=== PATIENT | female | born 1965 | race Two or more races ===

== ENCOUNTER 2016-10-03 08:52 | Emergency (ER) | payer MEDICAID ==
[~2016-10-03] VITALS: Ht 157.5 cm; Wt 74.8 kg
[2016-10-03] MEDS ORDERED: KETOROLAC TROMETH 60MG/2ML VIAL IM ONE (11:15)
[2016-10-03 11:18] VITALS: BP 145/84
== END 2016-10-03 12:03 | disposition home or self-care (01) ==
LOC: ER 08:53
DX: M72.2 Plantar fascial fibromatosis (principal); E11.9 Type 2 diabetes mellitus without complications; I10 Essential (primary) hypertension; Z98.890 Other specified postprocedural states; Z90.710 Acquired absence of both cervix and uterus; Z90.49 Acquired absence of other specified parts of digestive tract
CPT/HCPCS: 73630; 82962; 96372; 99284; J1885

== ENCOUNTER 2017-03-26 08:20 | Emergency (ER) | payer MEDICAID ==
[~2017-03-26] VITALS: Ht 157.5 cm; Wt 77.1 kg
[2017-03-26 09:27] LABS: Urine RBC None Seen /hpf (0 - 4)
[2017-03-26 09:34] LABS: Urine Bilirubin Negative (Negative); Urine Blood Negative /uL (Negative); Urine Glucose Normal (Normal); Urine Ketone Negative (Negative); Urine Squamous Epithelial Cell FEW /hpf (<5); Urine Urobilinogen Normal (Negative)
[2017-03-26 09:35] LABS: Urine Color Straw (Yellow); Urine Nitrite POSITIVE (Negative)
[2017-03-26 09:51] LABS: Basophils # (auto) 0 uL; Basophils % (auto) 0.5 % (0.0-2.0); CONDITION Y; Eosinophils # (auto) 0.1 uL; Eosinophils % (auto) 1.3 % (0.0-7.0); Hematocrit 39.7 % (36.0-46.0); Hemoglobin 13.9 g/dL (12.2-16.2); Lymphocytes # (auto) 2.1 uL; Lymphocytes % (auto) 30.9 % (10.0-50.0); Mean Corpuscular Hemoglobin 31.5 pg (28.0-32.0); Mean Corpuscular Hgb Conc. 35.1 g/dL (32.0-36.0); Mean Platelet Volume 8.8 fL (7.4-10.4); Monocytes # (auto) 0.6 uL; Neutrophils # (auto) 4.1 uL; Neutrophils % (auto) 58.3 % (37.0-80.0); Platelet Count (auto) 238 10^3/uL (140-450); Red Cell Distribution Width 13.1 % (11.6-16.0)
[2017-03-26 10:20] LABS: Albumin 3.8 g/dL (3.4-5.0); BUN/Creatinine Ratio 18.6; Bilirubin, Total 0.3 mg/dL (0.2-1.0); Calcium 8.6 mg/dL (8.5-10.1); Potassium 4.3 mmol/L (3.5-5.1); Total Protein 7.4 g/dL (6.4-8.2)
[2017-03-26] MEDS ORDERED: CIPROFLOXACIN HCL 500 MG TAB PO ONE (11:15)
[2017-03-26 11:33] VITALS: BP 143/82
== END 2017-03-26 12:07 | disposition home or self-care (01) ==
LOC: ER 08:20
DX: N39.0 Urinary tract infection, site not specified (principal); E11.9 Type 2 diabetes mellitus without complications; I10 Essential (primary) hypertension; Z90.49 Acquired absence of other specified parts of digestive tract; Z90.710 Acquired absence of both cervix and uterus; R31.9 Hematuria, unspecified
CPT/HCPCS: 36415; 80053; 81001; 84484; 85025; 93005

== ENCOUNTER 2017-09-20 05:26 | Emergency (ER) | payer MEDICAID ==
[~2017-09-20] VITALS: Ht 157.5 cm; Wt 76.2 kg
[2017-09-20 06:12] LABS: Urine Bacteria FEW /hpf (None Seen); Urine Blood Negative /uL (Negative); Urine Specific Gravity 1.003 (1.001-1.035); Urine WBC <1 /hpf (0 - 5)
[2017-09-20 07:34] LABS: Basophils # (auto) 0.1 uL; Eosinophils # (auto) 0.1 uL; Eosinophils % (auto) 2.2 % (0.0-7.0); Hematocrit 41.8 % (36.0-46.0); Hemoglobin 14.2 g/dL (12.2-16.2); Lymphocytes # (auto) 2.1 uL; Lymphocytes % (auto) 31.9 % (10.0-50.0); Mean Corpuscular Hemoglobin 30.9 pg (28.0-32.0); Mean Corpuscular Hgb Conc. 33.9 g/dL (32.0-36.0); Mean Corpuscular Volume 91.1 fL (80.0-100.0); Monocytes # (auto) 0.8 uL; Monocytes % (auto) 11.8 % (0.0-12.0); Neutrophils # (auto) 3.6 uL; Neutrophils % (auto) 53.1 % (37.0-80.0); Nucleated Red Blood Cells % 0.2 %; Platelet Count (auto) 217 10^3/uL (140-450); Red Blood Cells 4.59 10^6/uL (4.0-5.20); Red Cell Distribution Width 13.1 % (11.8-14.3); White Blood Cell 6.7 10^3/uL (4.4-10.8)
[2017-09-20 07:46] LABS: Albumin 3.7 g/dL (3.4-5.0); BUN/Creatinine Ratio 16.4; Bilirubin, Total 0.6 mg/dL (0.2-1.0); Calcium 8.6 mg/dL (8.5-10.1); Potassium 4.2 mmol/L (3.5-5.1); Total Protein 7.9 g/dL (6.4-8.2)
[2017-09-20 12:32] VITALS: BP 144/86
== END 2017-09-20 13:34 | disposition home or self-care (01) ==
LOC: ER 05:32
DX: K59.01 Slow transit constipation (principal); E11.65 Type 2 diabetes mellitus with hyperglycemia; M79.1 Myalgia; I10 Essential (primary) hypertension; Z76.0 Encounter for issue of repeat prescription; Z90.49 Acquired absence of other specified parts of digestive tract; Z90.710 Acquired absence of both cervix and uterus
CPT/HCPCS: 36415; 74176; 80053; 81001; 81025; 82962; 85025; 99285; J7030

== ENCOUNTER 2017-12-26 06:56 | Emergency (ER) | payer MEDICAID ==
[~2017-12-26] VITALS: Ht 154.9 cm; Wt 77.1 kg
[2017-12-26 08:38] LABS: Basophils # (auto) 0.1 uL; Basophils % (auto) 1.3 % (0.0-2.0); Eosinophils # (auto) 0.2 uL; Eosinophils % (auto) 2.4 % (0.0-7.0); Hemoglobin 13.9 g/dL (12.2-16.2); Lymphocytes # (auto) 1.8 uL; Lymphocytes % (auto) 22.7 % (10.0-50.0); Mean Corpuscular Hemoglobin 30.4 pg (28.0-32.0); Mean Corpuscular Hgb Conc. 33.2 g/dL (32.0-36.0); Mean Corpuscular Volume 91.4 fL (80.0-100.0); Monocytes # (auto) 0.7 uL; Monocytes % (auto) 8.6 % (0.0-12.0); Neutrophils # (auto) 5.1 uL; Nucleated Red Blood Cells % 0.1 %; Platelet Count (auto) 200 10^3/uL (140-450); Red Blood Cells 4.59 10^6/uL (4.0-5.20); Red Cell Distribution Width 13.3 % (11.8-14.3); White Blood Cell 7.9 10^3/uL (4.4-10.8)
[2017-12-26 08:45] LABS: Urine Bacteria MANY /hpf (None Seen); Urine Blood Negative /uL (Negative); Urine Mucus FEW (None Seen); Urine Specific Gravity 1.011 (1.001-1.035); Urine WBC 15 /hpf (0 - 5)
[2017-12-26 08:53] LABS: Albumin 3.6 g/dL (3.4-5.0); BUN/Creatinine Ratio 19.7; Calcium 8.8 mg/dL (8.5-10.1); Potassium 3.9 mmol/L (3.5-5.1)
[2017-12-26 08:56] LABS: Bilirubin, Total 0.5 mg/dL (0.2-1.0); Total Protein 7.3 g/dL (6.4-8.2)
[2017-12-26] MEDS ORDERED: NITROFURANTOIN (MONO) 100 mg CAP PO ONE (11:15)
[2017-12-26 11:20] VITALS: BP 100/56
== END 2017-12-26 11:37 | disposition home or self-care (01) ==
LOC: ER 07:10
DX: M79.605 Pain in left leg (principal); M79.604 Pain in right leg; N39.0 Urinary tract infection, site not specified; K75.9 Inflammatory liver disease, unspecified; E11.9 Type 2 diabetes mellitus without complications; I10 Essential (primary) hypertension; R06.02 Shortness of breath; Z90.49 Acquired absence of other specified parts of digestive tract; Z90.710 Acquired absence of both cervix and uterus
CPT/HCPCS: 36415; 80053; 81001; 83880; 85025; 93971

== ENCOUNTER 2018-05-13 18:33 | Emergency (ER) | payer MEDICAID ==
[~2018-05-13] VITALS: Ht 157.5 cm; Wt 78.5 kg
[2018-05-13 21:18] VITALS: BP 141/91
[2018-05-13] MEDS ORDERED: HYDROcodone-ACET 10/325MG TAB PO ONE (22:00)
[2018-05-13] MEDS ORDERED: BENZOCAINE (DENTAL) 20 % SPRAY 60ML MT ONE (22:00)
[2018-05-13] MEDS ORDERED: cefTRIAXone SOD 1,000 MG VL IM ONE (22:00)
== END 2018-05-13 22:38 | disposition home or self-care (01) ==
LOC: ER 18:33
DX: L03.011 Cellulitis of right finger (principal); E11.9 Type 2 diabetes mellitus without complications; I10 Essential (primary) hypertension; Z90.49 Acquired absence of other specified parts of digestive tract; Z87.440 Personal history of urinary (tract) infections
CPT/HCPCS: 10060; 73140; 82962; 96372; 99284; J0696

== ENCOUNTER 2018-05-14 21:18 | Emergency (ER) | payer MEDICAID ==
[~2018-05-14] VITALS: Ht 157.5 cm; Wt 77.1 kg
[2018-05-14 21:59] VITALS: BP 151/85
[2018-05-14] MEDS ORDERED: cefTRIAXone SOD 1,000 MG VL IM ONE (23:30)
[2018-05-14] MEDS ORDERED: LIDOCAINE 1% (LOCAL ANESTH.) PF 5ml SDV ONE (23:32)
[2018-05-15] MEDS ORDERED: cefTRIAXone SOD 1,000 MG VL IM ONE (00:15)
== END 2018-05-15 00:27 | disposition home or self-care (01) ==
LOC: ER 21:18
DX: L02.511 Cutaneous abscess of right hand (principal); E11.9 Type 2 diabetes mellitus without complications; I10 Essential (primary) hypertension; Z90.710 Acquired absence of both cervix and uterus; Z90.49 Acquired absence of other specified parts of digestive tract
CPT/HCPCS: 96372; 99283; J0696

== ENCOUNTER 2018-07-25 08:59 | Emergency (ER) | payer MEDICAID ==
[~2018-07-25] VITALS: Ht 157.5 cm; Wt 78.5 kg
[2018-07-25 09:05] VITALS: BP 152/86
[2018-07-25] MEDS ORDERED: cefTRIAXone W LIDOCAINE 1 GM IM IM ONE (09:45)
[2018-07-25] MEDS ORDERED: cefTRIAXone SOD 1,000 MG VL IM ONE (10:00)
== END 2018-07-25 10:07 | disposition home or self-care (01) ==
LOC: ER 09:02
DX: L03.116 Cellulitis of left lower limb (principal); E11.9 Type 2 diabetes mellitus without complications; I10 Essential (primary) hypertension; Z90.710 Acquired absence of both cervix and uterus; Z90.49 Acquired absence of other specified parts of digestive tract
CPT/HCPCS: 82962; 96372; 99283; J0696

== ENCOUNTER 2019-01-11 19:06 | Emergency (ER) | payer MEDICAID ==
[~2019-01-11] VITALS: Ht 157.5 cm; Wt 79.4 kg
[2019-01-11 21:04] LABS: Basophils # (auto) 0 uL; Basophils % (auto) 0.6 % (0.0-2.0); Eosinophils # (auto) 0.1 uL; Eosinophils % (auto) 1.5 % (0.0-7.0); Hematocrit 41.2 % (36.0-46.0); Hemoglobin 13.9 g/dL (12.2-16.2); Lymphocytes # (auto) 2.5 uL; Lymphocytes % (auto) 33.3 % (10.0-50.0); Mean Corpuscular Hemoglobin 30.5 pg (28.0-32.0); Mean Corpuscular Hgb Conc. 33.8 g/dL (32.0-36.0); Mean Corpuscular Volume 90.3 fL (80.0-100.0); Monocytes # (auto) 0.8 uL; Monocytes % (auto) 10.1 % (0.0-12.0); Neutrophils # (auto) 4.1 uL; Neutrophils % (auto) 54.5 % (37.0-80.0); Nucleated Red Blood Cells % 0.1 %; Platelet Count (auto) 224 10^3/uL (140-450); Red Blood Cells 4.56 10^6/uL (4.0-5.20); Red Cell Distribution Width 13.4 % (11.8-14.3); White Blood Cell 7.4 10^3/uL (4.4-10.8)
[2019-01-11 21:20] LABS: Albumin 3.8 g/dL (3.4-5.0); Calcium 8.9 mg/dL (8.5-10.1); Potassium 4.5 mmol/L (3.5-5.1)
[2019-01-11 21:23] LABS: BUN/Creatinine Ratio 13.6; Bilirubin, Total 0.3 mg/dL (0.2-1.0); Total Protein 7.8 g/dL (6.4-8.2)
[2019-01-12] MEDS ORDERED: HYDROcodone-ACET 10/325MG TAB PO ONE (01:15)
[2019-01-12] MEDS ORDERED: cefTRIAXone 1GM/50ML D5W 50 ML IV ONE (01:15)
[2019-01-12] MEDS ORDERED: VANCOMYCIN 1GM/250ML 250 ML IV ONE (01:15)
[2019-01-12 02:56] VITALS: BP 142/86
== END 2019-01-12 04:08 | disposition home or self-care (01) ==
LOC: ER 19:11
DX: S91.332A Puncture wound without foreign body, left foot, initial encounter (principal); L03.116 Cellulitis of left lower limb; E11.65 Type 2 diabetes mellitus with hyperglycemia; I10 Essential (primary) hypertension; Z90.49 Acquired absence of other specified parts of digestive tract; Z90.710 Acquired absence of both cervix and uterus; W22.8XXA Striking against or struck by other objects, initial encounter; Y93.89 Activity, other specified; Y99.8 Other external cause status; Y92.89 Other specified places as the place of occurrence of the external cause
CPT/HCPCS: 36415; 73630; 73700; 80053; 85025; 96365; 96366; 96368; 99284; J0696; J3370

== ENCOUNTER 2019-06-27 00:36 | Emergency (ER) | payer MEDICAID ==
[~2019-06-27] VITALS: Ht 157.5 cm; Wt 74.8 kg
[2019-06-27] MEDS ORDERED: cefTRIAXone SOD 1,000 MG VL IM ONE (04:00)
[2019-06-27] MEDS ORDERED: KETOROLAC TROMETH 60MG/2ML VIAL IM ONE (04:00)
[2019-06-27 04:34] VITALS: BP 107/76
[2019-06-27 05:12] LABS: Basophils # (auto) 0.1 uL; Basophils % (auto) 0.5 % (0.0-2.0); Eosinophils # (auto) 0.1 uL; Eosinophils % (auto) 0.7 % (0.0-7.0); Hemoglobin 14.3 g/dL (12.2-16.2); Lymphocytes # (auto) 1.6 uL; Lymphocytes % (auto) 15.4 % (10.0-50.0); Mean Corpuscular Hemoglobin 30.5 pg (28.0-32.0); Mean Corpuscular Hgb Conc. 34.1 g/dL (32.0-36.0); Mean Corpuscular Volume 89.4 fL (80.0-100.0); Monocytes # (auto) 1.1 uL; Monocytes % (auto) 10.9 % (0.0-12.0); Neutrophils # (auto) 7.5 uL; Neutrophils % (auto) 72.5 % (37.0-80.0); Platelet Count (auto) 217 10^3/uL (140-450); Red Blood Cells 4.69 10^6/uL (4.0-5.20); Red Cell Distribution Width 13.6 % (11.8-14.3); White Blood Cell 10.3 10^3/uL (4.4-10.8)
[2019-06-27 05:31] LABS: Albumin 3.6 g/dL (3.4-5.0); Anion Gap 5 (5-15); Blood Urea Nitrogen 15 mg/dL (7-18); Calcium 8.6 mg/dL (8.5-10.1); Carbon Dioxide 29 mmol/L (21-32); Chloride 104 mmol/L (98-107); Glucose 146 mg/dL (74-106); Sodium 138 mmol/L (136-145)
[2019-06-27 05:37] LABS: Alanine Aminotransferase 32 U/L (13-56); Alkaline Phosphatase 122 U/L (45-117); Aspartate Aminotransferase 18 U/L (15-37); BUN/Creatinine Ratio 16.7; Bilirubin, Total 0.6 mg/dL (0.2-1.0); GFR African American 85 mL/min; GFR Non-African American 70 mL/min; Total Protein 7.7 g/dL (6.4-8.2)
== END 2019-06-27 05:07 | disposition home or self-care (01) ==
LOC: ER 00:38
DX: R42 Dizziness and giddiness (principal); H70.002 Acute mastoiditis without complications, left ear; H92.02 Otalgia, left ear; E11.9 Type 2 diabetes mellitus without complications; I10 Essential (primary) hypertension; Z90.49 Acquired absence of other specified parts of digestive tract
CPT/HCPCS: 36415; 70450; 71045; 80053; 82962; 84484; 85025; 93005; 96372; 99284; J0696; J1885

== ENCOUNTER 2019-10-09 04:16 | Emergency (ER) | payer MEDICAID ==
[~2019-10-09] VITALS: Ht 152.4 cm; Wt 76.4 kg
[2019-10-09 04:28] VITALS: BP 140/78
== END 2019-10-09 06:48 | disposition left against medical advice (07) ==
LOC: ER 04:16
DX: R21 Rash and other nonspecific skin eruption (principal); Z53.21 Procedure and treatment not carried out due to patient leaving prior to being seen by health care provider

== ENCOUNTER 2019-11-11 12:48 | Emergency (ER) | payer MEDICAID ==
[~2019-11-11] VITALS: Ht 157.5 cm; Wt 68.0 kg
[2019-11-11 16:11] VITALS: BP 164/99
[2019-11-11] MEDS ORDERED: ACETAMINOPHEN 500 MG TAB PO ONE (16:30)
== END 2019-11-11 17:38 | disposition home or self-care (01) ==
LOC: EDBD 12:48 → ER 12:58
DX: S16.1XXA Strain of muscle, fascia and tendon at neck level, initial encounter (principal); S39.012A Strain of muscle, fascia and tendon of lower back, initial encounter; E11.9 Type 2 diabetes mellitus without complications; I10 Essential (primary) hypertension; V43.52XA Car driver injured in collision with other type car in traffic accident, initial encounter; Y93.I9 Activity, other involving external motion; Y92.410 Unspecified street and highway as the place of occurrence of the external cause; Y99.8 Other external cause status
CPT/HCPCS: 72040

== ENCOUNTER 2019-11-27 19:36 | Emergency (ER) | payer MEDICAID, OTHER ==
[~2019-11-27] VITALS: Ht 152.4 cm; Wt 76.2 kg
[2019-11-27] MEDS ORDERED: KETOROLAC TROMETH 60MG/2ML VIAL IM ONE (21:45)
[2019-11-27] MEDS ORDERED: methylPREDNISolone SOD SUCC 125 MG/2 ML VL IM ONE (21:45)
[2019-11-27 23:06] VITALS: BP 148/76
== END 2019-11-27 23:25 | disposition home or self-care (01) ==
LOC: ER 19:38
DX: S39.012D Strain of muscle, fascia and tendon of lower back, subsequent encounter (principal); S43.402D Unspecified sprain of left shoulder joint, subsequent encounter; E11.9 Type 2 diabetes mellitus without complications; I10 Essential (primary) hypertension; Z90.49 Acquired absence of other specified parts of digestive tract; Z90.710 Acquired absence of both cervix and uterus; X58.XXXD Exposure to other specified factors, subsequent encounter
CPT/HCPCS: 72100; 76775; 96372; 99284; J1885; 93005

== ENCOUNTER 2020-01-18 23:22 | Inpatient (IN) | payer MEDICAID ==
[~2020-01-18] VITALS: Ht 152.4 cm; Wt 75.9 kg
[2020-01-19] LABS: Basophils # (auto) 0.1 10 ^3/uL (0-0.2); Basophils % (auto) 0.3 % (0.0-2.0); Eosinophils # (auto) 0 10 ^3/uL (0-0.8); Eosinophils % (auto) 0.1 % (0.0-7.0); Hematocrit 38.3 % (36.0-46.0); Hemoglobin 12.6 g/dL (12.2-16.2); Lymphocytes # (auto) 0.9 10 ^3/uL (0.4-5.4); Lymphocytes % (auto) 5.4 % (10.0-50.0); Mean Corpuscular Hemoglobin 28.7 pg (28.0-32.0); Mean Corpuscular Volume 86.8 fL (80.0-100.0); Monocytes # (auto) 0.9 10 ^3/uL (0-1.3); Monocytes % (auto) 5.7 % (0.0-12.0); Neutrophils # (auto) 14.8 10 ^3/uL (1.6-8.6); Neutrophils % (auto) 88.5 % (37.0-80.0); Nucleated Red Blood Cells % 0.1 %; Platelet Count (auto) 268 10^3/uL (140-450); Red Blood Cells 4.41 10^6/uL (4.0-5.20); Red Cell Distribution Width 14.2 % (11.8-14.3); White Blood Cell 16.7 10^3/uL (4.4-10.8)
[2020-01-19] MEDS ORDERED: MORPHINE SULFATE 4 MG/ML SYR/VIAL IV ONE (00:15)
[2020-01-19] MEDS ORDERED: ONDANSETRON HCL 4 MG/2 ML VIAL IV ONE (00:15)
[2020-01-19 00:17] LABS: Albumin 3.4 g/dL (3.4-5.0); Calcium 8.5 mg/dL (8.5-10.1); Potassium 4.2 mmol/L (3.5-5.1)
[2020-01-19 00:20] LABS: Bilirubin, Total 0.4 mg/dL (0.2-1.0); Total Protein 8.1 g/dL (6.4-8.2)
[2020-01-19 00:42] LABS: Urine Bacteria MANY /hpf (None Seen); Urine Blood 3+ /uL (Negative); Urine Specific Gravity 1.017 (1.001-1.035); Urine WBC 177 /hpf (0 - 5)
[2020-01-19] MEDS ORDERED: cefTRIAXone 1GM/50ML D5W 50 ML IV ONE (01:00)
[2020-01-19] MEDS ORDERED: TEMAZEPAM 15 MG CAP PO PRN (02:30)
[2020-01-19] MEDS ORDERED: DEXTROSE (50%) 50ML SYRG IV PRN (02:30)
[2020-01-19] MEDS ORDERED: cloNIDine HCL 0.1 MG TAB PO PRN (02:30)
[2020-01-19] MEDS ORDERED: HYDROcodone-ACET 5/325MG TAB PO PRN (02:30)
[2020-01-19] MEDS ORDERED: ONDANSETRON HCL 4 MG/2 ML VIAL IV PRN (02:30)
[2020-01-19] MEDS ORDERED: SODIUM CHLORIDE 0.9% 1,000 ML IV SCH (02:30)
--- NOTE | 2020-01-19 03:47 | NUR ---
MS admit from [facility],ARIADNA TROTTER admitted to MS after SBAR received. Patient oriented to Denise Zayas primary RN, unit, room, bed, and unit policies regarding patient care and visiting hours. Patient weighed by bed scale and encouraged to call if they need something. All questions and concerns addressed, patient verbalized understanding. Instructed patient on POC, fall precautions and to call for assistance as needed. Patient verbalized understanding. Fall precautions in place with call light within reach.
[2020-01-19] MEDS ORDERED: INSLANTI SC (05:10)
[2020-01-19] MEDS ORDERED: METF-370 PO (05:10)
[2020-01-19] MEDS ORDERED: INSU100I2 SC (05:10)
[2020-01-19] MEDS: ACCU-CHEK COMFORT CURVE STRIP VI SCH ×3 (06:13→17:51)
[2020-01-19] MEDS: InsuLIN REG 1unit/0.01ml Soln (100units/ml) SC SCH ×3 (06:18→17:54)
--- NOTE | 2020-01-19 06:25 | NUR ---
Closing note Patient resting in bed with even and unlabored respirations, no distress noted. Patient reports she is comfortable. Fall precautions in place with call light within reach.
--- NOTE | 2020-01-19 07:27 | NUR ---
Care endorsed to YULI Puga.
--- NOTE | 2020-01-19 07:48 | NUR ---
Opening Shift Note Assumed care of patient, awake and alert sitting up in bed. No S/S of distress/SOB or pain. Instructed on POC and to call for assist PRN, will continue to monitor for changes Q1hr and PRN.
[2020-01-19 09:00] VITALS: BP 117/69
[2020-01-19] MEDS: amLODIPine BESYLATE 5 MG TAB PO SCH (10:00)
[2020-01-19] MEDS: FAMOTIDINE 20 MG TAB PO SCH ×2 (12:10→21:36)
[2020-01-19 13:00] VITALS: BP 146/76
[2020-01-19] MEDS: SODIUM CHLORIDE 0.9% 1,000 ML IV SCH (14:37)
--- NOTE | 2020-01-19 14:40 | NUR ---
Hernandez Catheter Patient refusing Hernandez catheter insertion at this time. Will notify Dr. Paniagua
[2020-01-19 17:13] VITALS: BP 152/84
--- NOTE | 2020-01-19 17:35 | NUR ---
Salguero catheter insertion Patient agreed to Salguero catheter insertion after speaking with Dr. Paniagua. Order obtained from Dr. Rowena Paniagua for salguero catheter insertion. He provided education to patient regarding Salguero catheter and reason for insertion. All questions answered. Salguero catheter 14 guage Sinhala inserted with clean sterile technique.
[2020-01-19] MEDS ORDERED: ESCI10TA53 PO (17:54)
--- NOTE | 2020-01-19 19:45 | NUR ---
Opening Shift Note Assumed care of patient, awake and alert. No S/S of distress/SOB. The patient reports having lower back pain with movement but did not request any pain medication. The patient reports feeling chills and stated that her temperature was high earlier. Rechecked the patient's temperature which was 100.7 F. Will treat with PRN Tylenol. Bed is locked in lowest position with call light within reach. Instructed on POC and to call for assist PRN, will continue to monitor for changes Q1hr and PRN.
--- NOTE | 2020-01-19 19:50 | NUR ---
ELEVATED TEMPERATURE The patient's temperature is elevated at 100.7 F. Will administer Acetaminophen and will reevaluate the patient's temperature.
[2020-01-19] MEDS: ACETAMINOPHEN 325 MG TAB PO PRN (19:54)
--- NOTE | 2020-01-19 21:00 | NUR ---
TEMPERATURE REEVALUATION The patient's temperature has improved to 99.1 F. Will continue to monitor the patient's temperature.
[2020-01-19] MEDS: ATORVASTATIN 20 MG TAB PO SCH (21:36)
[2020-01-19 22:00] VITALS: BP 137/73
[2020-01-20] MEDS: ACCU-CHEK COMFORT CURVE STRIP VI SCH ×4 (00:37→18:03)
[2020-01-20] MEDS ORDERED: cefTRIAXone 1GM/50ML D5W 50 ML IV SCH (01:00)
[2020-01-20] MEDS: ACETAMINOPHEN 325 MG TAB PO PRN ×3 (02:45→20:43)
--- NOTE | 2020-01-20 02:45 | NUR ---
ELEVATED TEMPERATURE The patient's temperature is 100.1 F and she complains of chills. Will administer Acetaminophen PRN and reevaluate.
--- NOTE | 2020-01-20 03:45 | NUR ---
TEMPERATURE REEVALUATION The patient's temperature has improved to 98.96 F. Patient is resting comfortably in bed. Will continue to monitor the patient's status.
--- NOTE | 2020-01-20 04:46 | NUR ---
POSITIVE BLOOD CULTURE Patient's blood culture is positive. Blood culture is positive for gram negative rods. Results verified by Renny Corbett. Will notify hospitalist.
[2020-01-20 05:00] VITALS: BP 125/70
--- NOTE | 2020-01-20 05:44 | NUR ---
HOSPITALIST PAGED Hospitalist Skyler has been nofitied about the patient's gram negative ermelinda blood culture results. New order received. Vancomycin per pharmacy order has been placed.
[2020-01-20 05:57] LABS: Basophils # (auto) 0 10 ^3/uL (0-0.2); Basophils % (auto) 0.3 % (0.0-2.0); Eosinophils # (auto) 0.1 10 ^3/uL (0-0.8); Eosinophils % (auto) 0.4 % (0.0-7.0); Hematocrit 36.3 % (36.0-46.0); Hemoglobin 12.4 g/dL (12.2-16.2); Lymphocytes # (auto) 1.4 10 ^3/uL (0.4-5.4); Lymphocytes % (auto) 11.9 % (10.0-50.0); Mean Corpuscular Hemoglobin 29.5 pg (28.0-32.0); Mean Corpuscular Hgb Conc. 34.2 g/dL (32.0-36.0); Mean Corpuscular Volume 86.4 fL (80.0-100.0); Monocytes # (auto) 1.3 10 ^3/uL (0-1.3); Monocytes % (auto) 11.1 % (0.0-12.0); Neutrophils # (auto) 9.2 10 ^3/uL (1.6-8.6); Neutrophils % (auto) 76.3 % (37.0-80.0); Platelet Count (auto) 231 10^3/uL (140-450); Red Cell Distribution Width 14.2 % (11.8-14.3); White Blood Cell 12.1 10^3/uL (4.4-10.8)
[2020-01-20] MEDS ORDERED: VANCOMYCIN PER PHARMACY 0 MG IV SCH (06:00)
[2020-01-20] MEDS ORDERED: VANCOMYCIN 1GM/250ML 250 ML IV SCH (06:00)
[2020-01-20] MEDS: InsuLIN REG 1unit/0.01ml Soln (100units/ml) SC SCH ×4 (06:21→18:04)
[2020-01-20 06:32] LABS: Calcium 8.1 mg/dL (8.5-10.1); Magnesium 1.9 mg/dL (1.6-2.6); Potassium 3.6 mmol/L (3.5-5.1)
[2020-01-20 06:39] LABS: Albumin 2.9 g/dL (3.4-5.0); BUN/Creatinine Ratio 15.6; Bilirubin, Total 0.5 mg/dL (0.2-1.0); Total Protein 7.2 g/dL (6.4-8.2)
[2020-01-20] MEDS: SODIUM CHLORIDE 0.9% 1,000 ML IV SCH ×2 (06:45→23:42)
--- NOTE | 2020-01-20 08:00 | NUR ---
Opening Shift Note Assumed care of patient, awake and alert. No S/S of distress/SOB or pain. Instructed on POC and to call for assist PRN, will continue to monitor for changes Q1hr and PRN.
[2020-01-20] MEDS: FAMOTIDINE 20 MG TAB PO SCH ×2 (09:30→22:29)
[2020-01-20] MEDS: amLODIPine BESYLATE 5 MG TAB PO SCH (09:30)
[2020-01-20 13:00] VITALS: BP 122/70
[2020-01-20] MEDS ORDERED: MAGNESIUM SULFATE 1GM/100ML 100 ML IV ONE (14:15)
[2020-01-20] MEDS ORDERED: PIPERACILLIN-TAZOB 3.375GM 100 ML IV ONE (14:15)
[2020-01-20 17:09] VITALS: BP 129/78
--- NOTE | 2020-01-20 18:00 | NUR ---
Temp-100.1,cooling measures administered.
[2020-01-20] MEDS: VANCOMYCIN 1GM/250ML 250 ML IV SCH (18:06)
[2020-01-20] MEDS: PIPERACILLIN-TAZOB 3.375GM 100 ML IV SCH (19:02)
--- NOTE | 2020-01-20 20:43 | NUR ---
TEMPERATURE ASSESSMENT The patient's temperature is elevated at 100.8 F. Will administer PRN Acetaminophen and reassess temperature.
[2020-01-20 22:00] VITALS: BP 144/72
[2020-01-20] MEDS ORDERED: INSULIN LANTUS (GLARGINE) 1 /0.01ml (100units/ml) SC SCH (22:00)
[2020-01-20] MEDS: ATORVASTATIN 20 MG TAB PO SCH (22:29)
--- NOTE | 2020-01-20 23:51 | NUR ---
TEMPERATURE REEVALUATION After additional cooling measures, the patient's temper improved to 98.6 F. Patient is resting comfortable in bed. Will continue to monitor the patient's temperature.
[2020-01-21] MEDS: InsuLIN REG 1unit/0.01ml Soln (100units/ml) SC SCH ×5 (00:28→23:44)
[2020-01-21 05:00] VITALS: BP 138/76
[2020-01-21 05:26] LABS: Basophils # (auto) 0.1 10 ^3/uL (0-0.2); Basophils % (auto) 0.5 % (0.0-2.0); Eosinophils # (auto) 0 10 ^3/uL (0-0.8); Eosinophils % (auto) 0.5 % (0.0-7.0); Hematocrit 37.8 % (36.0-46.0); Lymphocytes # (auto) 1.1 10 ^3/uL (0.4-5.4); Lymphocytes % (auto) 11.1 % (10.0-50.0); Mean Corpuscular Hemoglobin 29.9 pg (28.0-32.0); Mean Corpuscular Hgb Conc. 34.4 g/dL (32.0-36.0); Mean Corpuscular Volume 86.8 fL (80.0-100.0); Neutrophils % (auto) 77.9 % (37.0-80.0); Platelet Count (auto) 235 10^3/uL (140-450); Red Blood Cells 4.36 10^6/uL (4.0-5.20); White Blood Cell 10.3 10^3/uL (4.4-10.8)
[2020-01-21 05:43] LABS: BUN/Creatinine Ratio 12.7; Calcium 8.2 mg/dL (8.5-10.1); Potassium 3.5 mmol/L (3.5-5.1)
[2020-01-21] MEDS: VANCOMYCIN 1GM/250ML 250 ML IV SCH (06:03)
[2020-01-21] MEDS: ACCU-CHEK COMFORT CURVE STRIP VI SCH ×5 (06:20→23:40)
[2020-01-21] MEDS: PIPERACILLIN-TAZOB 3.375GM 100 ML IV SCH ×3 (06:21→11:12)
--- NOTE | 2020-01-21 07:30 | NUR ---
RECEIVED REPORT FROM NIGHT NURSE. PATIENT RESTING IN BED, NO DISTRESS NOTED. WILL CONTINUE TO MONITOR.
[2020-01-21 09:00] VITALS: BP 132/71
[2020-01-21] MEDS: amLODIPine BESYLATE 5 MG TAB PO SCH (09:32)
[2020-01-21] MEDS: FAMOTIDINE 20 MG TAB PO SCH ×2 (09:33→21:23)
--- NOTE | 2020-01-21 11:22 | NUR ---
IV INSERTION IV INSERTED USING ASEPTIC TECHNIQUE, 22G TO THE RIGHT HAND, IV PATENT AND FLUSHING.
--- NOTE | 2020-01-21 11:22 | NUR ---
IV REMOVAL IV TO RIGHT AC, REMOVED. CATHETER TIP INTACT, PRESSURE DRESSING APPLIED.
[2020-01-21 13:00] VITALS: BP 135/81
[2020-01-21] MEDS ORDERED: ERTAPENEM SOD INJ 1 GM in SODIUM CHL 0.9% 50 ML IV ONE (13:45)
--- NOTE | 2020-01-21 15:31 | NUR ---
MIDLINE placement Patient/Patient significant other educated on need for MIDLINE placement. All risks and benefits explained and all questions and concerns addressed prior to procedure. Noted past medical history and allergies with no contraindications. INR and Plt counts within acceptable range. 4 fr MIDLINE inserted via right basilic vein using [employer]'s [employer] US and Tip Location System. Sterile technique with maximum barrier precautions utilized. Blood return obtained from the single lumen and it flushed easily with NS using proper technique. MIDLINE secured with Stat-lock; biodisc and occlusive dressing applied. Less than 5ml EBL noted during procedure. MIDLINE 20cm internally w/ 0cm externally. *Baseline Arm Circumference 34cm at 1cm above insertion site. MIDLINE lot # [id number]. Note:
--- NOTE | 2020-01-21 15:32 | NUR ---
OK to use MIDLINE Adelaide Tran. notified now OK to use MIDLINE.
[2020-01-21] MEDS: SODIUM CHLORIDE 0.9% 1,000 ML IV SCH (16:02)
[2020-01-21 17:39] VITALS: BP_SYST 155
--- NOTE | 2020-01-21 19:30 | NUR ---
opening note pt dangling at the bedside. respirations even and nonlabored on room air. salguero in place, patent, and draining to gravity. midline at right upper arm. pt denies pain or discomfort at this time. POC discussed with pt. bed in low locked position, call light within reach.
[2020-01-21] MEDS: ATORVASTATIN 20 MG TAB PO SCH (21:23)
[2020-01-21 22:00] VITALS: BP 132/76
[2020-01-21] MEDS ORDERED: INSULIN LANTUS (GLARGINE) 1 /0.01ml (100units/ml) SC SCH (22:00)
--- NOTE | 2020-01-22 00:50 | NUR ---
pt c/o sharp pain at lower abdominal area,5/10. pt will be medicated appropriately.
[2020-01-22 05:00] VITALS: BP 116/61
[2020-01-22] MEDS: ACCU-CHEK COMFORT CURVE STRIP VI SCH ×4 (05:23→23:56)
[2020-01-22] MEDS: InsuLIN REG 1unit/0.01ml Soln (100units/ml) SC SCH ×4 (05:28→23:56)
--- NOTE | 2020-01-22 06:58 | NUR ---
closing note pt is A&Ox4. pt is up in a chair, and denies pain or discomfort at this time. respirations are even and nonlabored on room air. slaguero catheter in place, patent, and draining to gravity.
[2020-01-22 09:00] VITALS: BP 121/75
[2020-01-22] MEDS: ERTAPENEM SOD INJ 1 GM in SODIUM CHL 0.9% 50 ML IV SCH (09:21)
[2020-01-22] MEDS: SODIUM CHLORIDE 0.9% 1,000 ML IV SCH (09:23)
[2020-01-22] MEDS: FAMOTIDINE 20 MG TAB PO SCH ×2 (09:24→22:11)
[2020-01-22] MEDS: amLODIPine BESYLATE 5 MG TAB PO SCH (09:25)
[2020-01-22 13:00] VITALS: BP 152/90
--- NOTE | 2020-01-22 14:03 | NUR ---
Dr. Juarez paged regarding last BM 01/17 and patient requested laxative. Awaiting to call back.
--- NOTE | 2020-01-22 15:19 | NUR ---
Dr. Juarez paged again. Awaiting to call back.
[2020-01-22 17:00] VITALS: BP 140/81
--- NOTE | 2020-01-22 19:15 | NUR ---
Opening Shift Note Received report from Sugey ROLDAN. Assumed care of patient, awake and alert. No S/S of distress/SOB or pain. Instructed on POC and to call for assist PRN. Fall precaution measures in place, will continue to monitor for changes Q1hr and PRN.
[2020-01-22 21:58] VITALS: BP 153/85
[2020-01-22] MEDS: ATORVASTATIN 20 MG TAB PO SCH (22:11)
[2020-01-22] MEDS: INSULIN LANTUS (GLARGINE) 1 /0.01ml (100units/ml) SC SCH (22:12)
[2020-01-23] MEDS: SODIUM CHLORIDE 0.9% 1,000 ML IV SCH (01:30)
[2020-01-23 05:00] VITALS: BP 126/73
[2020-01-23] MEDS: InsuLIN REG 1unit/0.01ml Soln (100units/ml) SC SCH ×4 (06:00→23:53)
[2020-01-23] MEDS: ACCU-CHEK COMFORT CURVE STRIP VI SCH ×4 (06:00→23:53)
--- NOTE | 2020-01-23 07:30 | NUR ---
Patient stable the whole night, no complaints of pain. Endorsed care to Zara ROLDAN.
--- NOTE | 2020-01-23 07:48 | NUR ---
Opening Note Assumed pt care from NOC RN. Pt is a/ox4 with no s/s of distress or SOB. Pt is currently sitting upright in bed with no complaints at this time. US is currently at bedside for Renal US. Discussed POC with pt; pt verbalized understanding. Hernandez is present; draining michelle gravity. Safety measures maintained with call light within reach, bed in lowest position and side rails up. Will continue to monitor.
[2020-01-23 08:45] VITALS: BP 128/75
[2020-01-23] MEDS: FAMOTIDINE 20 MG TAB PO SCH ×2 (09:23→22:08)
[2020-01-23] MEDS: ERTAPENEM SOD INJ 1 GM in SODIUM CHL 0.9% 50 ML IV SCH (09:23)
[2020-01-23] MEDS: amLODIPine BESYLATE 5 MG TAB PO SCH (09:24)
--- NOTE | 2020-01-23 11:27 | NUR ---
Dr Juarez at Bedside MD to see pt. Discussed POC with pt. New orders given, read back and verified. Will continue to monitor.
--- NOTE | 2020-01-23 11:59 | NUR ---
Hernandez D/C'd Hernandez catheter d/c'ed. 450mL urine in bag upon d/c. Pt instructed to call if need assistance in voiding. Will continue to monitor.
[2020-01-23 12:30] VITALS: BP 142/82
[2020-01-23] MEDS: LACTULOSE 20Gm/30ML SOLN PO PRN (15:39)
[2020-01-23 17:20] VITALS: BP 128/78
--- NOTE | 2020-01-23 19:20 | NUR ---
Opening Shift Note Received report from Zara ROLDAN. Assumed care of patient, awake and alert, sitting on the chair by the window. No S/S of distress/SOB or pain. Instructed on POC and to call for assist PRN, will continue to monitor for changes Q1hr and PRN.
[2020-01-23] MEDS: ATORVASTATIN 20 MG TAB PO SCH (22:08)
[2020-01-23] MEDS: DOCUSATE SOD 100 MG CAP PO SCH (22:08)
[2020-01-23] MEDS: INSULIN LANTUS (GLARGINE) 1 /0.01ml (100units/ml) SC SCH (22:09)
[2020-01-23 22:13] VITALS: BP 123/72
--- NOTE | 2020-01-23 23:53 | NUR ---
Patient refused 12 midnight Accu check, educated on the risk and benefit, patient verbalized understanding.
[2020-01-24 05:55] VITALS: BP 114/75
[2020-01-24] MEDS: ACCU-CHEK COMFORT CURVE STRIP VI SCH ×2 (06:21→12:00)
[2020-01-24] MEDS: InsuLIN REG 1unit/0.01ml Soln (100units/ml) SC SCH ×2 (06:26→12:02)
[2020-01-24 06:44] LABS: Basophils # (auto) 0.1 10 ^3/uL (0-0.2); Eosinophils # (auto) 0.2 10 ^3/uL (0-0.8); Eosinophils % (auto) 2.3 % (0.0-7.0); Hematocrit 38.1 % (36.0-46.0); Lymphocytes # (auto) 2.1 10 ^3/uL (0.4-5.4); Mean Corpuscular Hemoglobin 29.3 pg (28.0-32.0); Mean Corpuscular Hgb Conc. 34.2 g/dL (32.0-36.0); Mean Corpuscular Volume 85.6 fL (80.0-100.0); Monocytes # (auto) 0.7 10 ^3/uL (0-1.3); Monocytes % (auto) 8.9 % (0.0-12.0); Neutrophils # (auto) 4.7 10 ^3/uL (1.6-8.6); Neutrophils % (auto) 60.8 % (37.0-80.0); Platelet Count (auto) 290 10^3/uL (140-450); Red Blood Cells 4.45 10^6/uL (4.0-5.20); Red Cell Distribution Width 14.1 % (11.8-14.3); White Blood Cell 7.7 10^3/uL (4.4-10.8)
[2020-01-24 07:02] LABS: BUN/Creatinine Ratio 16.1; Calcium 8.9 mg/dL (8.5-10.1); Magnesium 2.3 mg/dL (1.6-2.6); Potassium 3.9 mmol/L (3.5-5.1)
--- NOTE | 2020-01-24 07:35 | NUR ---
Opening shift note assumed care of patient from NOC YULI Payan. Patient is AOx4 and no s/s of distress noted. Bed is in lowest locked position, side rails are up x2, and call light is within reach. Updated patient on plan of care, patient verbalized understating. I will continue to monitor Q1hr and PRN.
[2020-01-24 08:45] VITALS: BP 123/80
--- NOTE | 2020-01-24 08:54 | NUR ---
I faxed home IV ATB order to [facility].
[2020-01-24] MEDS: DOCUSATE SOD 100 MG CAP PO SCH (09:56)
[2020-01-24] MEDS: FAMOTIDINE 20 MG TAB PO SCH (09:56)
[2020-01-24] MEDS: LACTULOSE 20Gm/30ML SOLN PO PRN (09:57)
[2020-01-24] MEDS: amLODIPine BESYLATE 5 MG TAB PO SCH (09:57)
[2020-01-24] MEDS: ERTAPENEM SOD INJ 1 GM in SODIUM CHL 0.9% 50 ML IV SCH (11:29)
--- NOTE | 2020-01-24 12:00 | NUR ---
Physician Rounding Dr. Juarez at bedside. Updated her on patient status. New orders received, I will follow through with orders.
[2020-01-24 12:39] VITALS: BP 132/78
--- NOTE | 2020-01-24 13:01 | NUR ---
I spoke with Cynthia at [facility] [phone] to let her know that [facility] will be following the patient. Per Cynthia they will deliver IV ATB to patient's home between 7-10pm [facility]-she will call patient to make her aware.
[2020-01-24] MEDS ORDERED: LISI-646 PO (13:04)
[2020-01-24 14:01] VITALS: BP 132/78
--- NOTE | 2020-01-24 14:55 | NUR ---
Discharged. Discharge instructions given as ordered. Encourage to follow up with PMD as instructed. All questions and concerns addressed. Patient verbalized understanding. Patient taken to vehicle via wheelchair with all personal belongings, accompanied by staff member. No distress noted at time of departure.
--- NOTE | 2020-01-24 14:56 | NUR ---
Assessment Patient is a 55-year-old female alert and oriented. Prior to admission patient lived home alone and function independently. Patient care for her own ADLs. Patient will return home to her prior living arrangements post discharge and her friend Loida will transport patient home. Advised Patient there is a Social Service consult for home health IV abx for 12 days. Informed patient if there is someone teachable at home who can assist with IV abx. Patient stated her friends daughter Gabino Ph:[phone]) will be able to assist. Informed patient [employer] will be faxing clinical information to the infusion. Informed patient she has the right to participate in all discharge planning. Patient verbalized understanding and agrees to discharge plan. Faxed clinical information to [facility]. Per Lolita with [facility] patient has been accepted and service to start within 24-48hrs upon d/c day. Obtain authorization from [facility] [id number]. Addendum: 01/24/20 at 1500 by PHOENIX ECHEVERRIA Amended: Links added.
--- NOTE | 2020-01-24 15:52 | NUR ---
Nutrition Assessment Notes Please refer to link for full assessment notes. Est Energy needs: [id number] kcals (17-20 kcal/kgBW) Est Protein needs: 61-76 gms/day (0.8-1.0 gm/kgBW) Will continue to monitor and reassess prn. Addendum: 01/24/20 at [address] Amended: Links added.
== END 2020-01-24 14:55 | disposition home health service (06) | DRG 720 ==
LOC: EDBD 23:22 → ER 23:23 → WEST WING 23:24
PROVIDERS: ADMIT Nurse Practitioner; ATTEND Internal Medicine
DX: A41.9 Sepsis, unspecified organism (principal); N10 Acute pyelonephritis; E11.9 Type 2 diabetes mellitus without complications; E66.9 Obesity, unspecified; B96.20 Unspecified Escherichia coli [E. coli] as the cause of diseases classified elsewhere; N13.6 Pyonephrosis; E78.5 Hyperlipidemia, unspecified; R31.9 Hematuria, unspecified; I10 Essential (primary) hypertension; Z16.12 Extended spectrum beta lactamase (ESBL) resistance; Z82.49 Family history of ischemic heart disease and other diseases of the circulatory system; Z83.3 Family history of diabetes mellitus; Z87.440 Personal history of urinary (tract) infections; Z90.49 Acquired absence of other specified parts of digestive tract; Z90.710 Acquired absence of both cervix and uterus; Z68.32 Body mass index [BMI] 32.0-32.9, adult
CPT/HCPCS: 36415; 74176; 76775; 80048; 80053; 80061; 81001; 82150; 82962; 83036; 83690; 83735; 84443; 85025; 87040; 87077; 87086; 87088; 87186; 96361; 96365; 96375; G0378; J0696; J1335; J1815; J2405; J2543

== ENCOUNTER → 2020-02-06 | Emergency (ER) | payer MEDICAID ==
[~2020-02-06] VITALS: Ht 152.4 cm; Wt 73.5 kg
[~2020-02-06] MED LIST: ESCI10TA53 PO; INSLANTI SC; INSU100I2 SC; LISI-646 PO; METF-370 PO
[2020-02-06 09:59] VITALS: BP 147/85
[2020-02-06 10:11] LABS: INR 0.96 (0.9-1.15); Partial Thromboplastin Time 27.1 sec (23.64-32.05)
== END | disposition home or self-care (01) ==
LOC: ER 09:05
DX: Z45.2 Encounter for adjustment and management of vascular access device (principal); E11.9 Type 2 diabetes mellitus without complications; Z87.440 Personal history of urinary (tract) infections; Z90.49 Acquired absence of other specified parts of digestive tract; Z90.710 Acquired absence of both cervix and uterus
CPT/HCPCS: 36415; 81002; 85610; 85730

== ENCOUNTER 2023-02-23 14:02 | Emergency (ER) | payer MEDICAID ==
[~2023-02-23] VITALS: Ht 152.4 cm; Wt 79.4 kg
[~2023-02-23 14:02] MED LIST changes: -ESCI10TA53 PO; +ESCI1TAB36 PO; -LISI-646 PO; +LISI20TA56 PO
[2023-02-23] MEDS ORDERED: BACDST PO (17:46)
[2023-02-23 17:53] VITALS: BP 133/78
== END 2023-02-23 18:06 | disposition home or self-care (01) ==
LOC: ER 14:02
DX: S91.331A Puncture wound without foreign body, right foot, initial encounter (principal); E11.9 Type 2 diabetes mellitus without complications; I10 Essential (primary) hypertension; Z79.899 Other long term (current) drug therapy; Z90.49 Acquired absence of other specified parts of digestive tract; Z90.710 Acquired absence of both cervix and uterus; Z98.890 Other specified postprocedural states; X58.XXXA Exposure to other specified factors, initial encounter; Y93.89 Activity, other specified; Y92.89 Other specified places as the place of occurrence of the external cause; Y99.8 Other external cause status
CPT/HCPCS: 73630

== ENCOUNTER 2023-03-22 09:19 | Emergency (ER) | payer MEDICAID ==
[~2023-03-22] VITALS: Ht 152.4 cm; Wt 78.0 kg
[~2023-03-22 09:19] MED LIST changes: +BACDST PO
[2023-03-22 14:38] LABS: Basophils # (auto) 0.1 10 ^3/uL (0-0.2); Basophils % (auto) 0.7 % (0.0-2.0); Eosinophils # (auto) 0.1 10 ^3/uL (0-0.8); Eosinophils % (auto) 1.1 % (0.0-7.0); Hematocrit 45.8 % (36.0-46.0); Hemoglobin 15.2 g/dL (12.2-16.2); Lymphocytes # (auto) 2.1 10 ^3/uL (0.4-5.4); Lymphocytes % (auto) 22.5 % (10.0-50.0); Mean Corpuscular Hemoglobin 30.4 pg (28.0-32.0); Mean Corpuscular Hgb Conc. 33.3 g/dL (32.0-36.0); Mean Corpuscular Volume 91.3 fL (80.0-100.0); Monocytes # (auto) 1.2 10 ^3/uL (0-1.3); Monocytes % (auto) 12.9 % (0.0-12.0); Neutrophils # (auto) 5.9 10 ^3/uL (1.6-8.6); Neutrophils % (auto) 62.8 % (37.0-80.0); Nucleated Red Blood Cells % 0.4 %; Red Blood Cells 5.01 10^6/uL (4.0-5.20); Red Cell Distribution Width 13.6 % (11.8-14.3); White Blood Cell 9.4 10^3/uL (4.4-10.8)
[2023-03-22 15:00] LABS: Albumin 3.9 g/dL (3.4-5.0); Calcium 9.2 mg/dL (8.5-10.1); Potassium 3.9 mmol/L (3.5-5.1)
[2023-03-22 15:04] LABS: BUN/Creatinine Ratio 16.4 (10.0-20.0); Bilirubin, Total 0.3 mg/dL (0.2-1.0); Total Protein 8.6 g/dL (6.4-8.2)
[2023-03-22] MEDS ORDERED: CEPH500C PO (16:02)
[2023-03-22 17:22] VITALS: BP 155/94
== END 2023-03-22 17:23 | disposition home or self-care (01) ==
LOC: ER 09:19
DX: S91.331A Puncture wound without foreign body, right foot, initial encounter (principal); L03.115 Cellulitis of right lower limb; E11.9 Type 2 diabetes mellitus without complications; I10 Essential (primary) hypertension; Z90.49 Acquired absence of other specified parts of digestive tract; Z88.2 Allergy status to sulfonamides; Z90.710 Acquired absence of both cervix and uterus; X58.XXXA Exposure to other specified factors, initial encounter; Y93.89 Activity, other specified; Y92.89 Other specified places as the place of occurrence of the external cause; Y99.8 Other external cause status
CPT/HCPCS: 36415; 76881; 80053; 85025

== ENCOUNTER 2023-06-27 07:35 | Emergency (ER) | payer MEDICAID ==
[~2023-06-27] VITALS: Ht 152.4 cm; Wt 78.2 kg
[~2023-06-27 07:35] MED LIST changes: +CEPH500C PO
[2023-06-27 08:18] VITALS: BP 158/89; PULSE 83; RESP 18; TEMP 97; O2SAT 95
[2023-06-27] MEDS ORDERED: IBUP-1456 PO (08:55)
== END 2023-06-27 09:14 | disposition home or self-care (01) ==
LOC: ER 07:35
DX: S63.592A Other specified sprain of left wrist, initial encounter (principal); I10 Essential (primary) hypertension; E11.9 Type 2 diabetes mellitus without complications; Z98.890 Other specified postprocedural states; Z79.1 Long term (current) use of non-steroidal anti-inflammatories (NSAID); Z79.84 Long term (current) use of oral hypoglycemic drugs; Z79.4 Long term (current) use of insulin; Z79.899 Other long term (current) drug therapy; X50.1XXA Overexertion from prolonged static or awkward postures, initial encounter; Y93.89 Activity, other specified; Y92.89 Other specified places as the place of occurrence of the external cause; Y99.8 Other external cause status
CPT/HCPCS: 73110

== ENCOUNTER 2023-08-08 09:01 | Emergency (ER) | payer MEDICAID ==
[~2023-08-08] VITALS: Ht 152.4 cm; Wt 79.8 kg
[~2023-08-08 09:01] MED LIST changes: +IBUP-1456 PO
[2023-08-08 09:29] VITALS: BP 151/83; PULSE 87; RESP 18; TEMP 98; O2SAT 97
[2023-08-08] MEDS ORDERED: IBUP-1456 PO (09:51)
== END 2023-08-08 10:04 | disposition home or self-care (01) ==
LOC: ER 09:01
DX: S63.502A Unspecified sprain of left wrist, initial encounter (principal); E11.9 Type 2 diabetes mellitus without complications; I10 Essential (primary) hypertension; Z90.49 Acquired absence of other specified parts of digestive tract; Z90.710 Acquired absence of both cervix and uterus; X50.1XXA Overexertion from prolonged static or awkward postures, initial encounter; Y93.89 Activity, other specified; Y92.89 Other specified places as the place of occurrence of the external cause; Y99.8 Other external cause status
CPT/HCPCS: 73110

== ENCOUNTER 2023-11-15 14:17 | Inpatient (IN) | payer MEDICAID ==
[~2023-11-15] VITALS: Ht 160 cm; Wt 83.5 kg
[2023-11-15 15:18] LABS: Basophils # (auto) 0.1 10 ^3/uL (0-0.2); Basophils % (auto) 0.4 % (0.0-2.0); Eosinophils # (auto) 0.1 10 ^3/uL (0-0.8); Eosinophils % (auto) 0.4 % (0.0-7.0); Hematocrit 41.8 % (36.0-46.0); Hemoglobin 14.2 g/dL (12.2-16.2); Lymphocytes % (auto) 13.5 % (10.0-50.0); Mean Corpuscular Hemoglobin 30.4 pg (28.0-32.0); Mean Corpuscular Hgb Conc. 33.9 g/dL (32.0-36.0); Mean Corpuscular Volume 89.8 fL (80.0-100.0); Monocytes # (auto) 0.9 10 ^3/uL (0-1.3); Monocytes % (auto) 6.2 % (0.0-12.0); Neutrophils # (auto) 11.7 10 ^3/uL (1.6-8.6); Neutrophils % (auto) 79.5 % (37.0-80.0); Red Blood Cells 4.66 10^6/uL (4.0-5.20); Red Cell Distribution Width 13.1 % (11.8-14.3); White Blood Cell 14.7 10^3/uL (4.4-10.8)
[2023-11-15 15:30] LABS: Urine Bacteria FEW /hpf (None Seen); Urine Blood Negative /uL (Negative); Urine Clarity Clear (Clear); Urine Protein, UAD Negative (Negative); Urine Specific Gravity 1.024 (1.001-1.035); Urine Urobilinogen Normal (Negative); Urine WBC 37 /hpf (0 - 5)
[2023-11-15 15:36] LABS: Alanine Aminotransferase 38 U/L (7-40); Albumin 4.5 g/dL (3.2-4.8); Alkaline Phosphatase 131 U/L (46-116); Anion Gap 9 (5-15); Aspartate Aminotransferase 24 U/L (13-40); BUN/Creatinine Ratio 18.5 (10.0-20.0); Blood Urea Nitrogen 17 mg/dL (9-23); Calcium 9.3 mg/dL (8.5-10.1); Carbon Dioxide 28 mmol/L (20-30); Chloride 96 mmol/L (98-107); Potassium 4.2 mmol/L (3.5-5.1); Sodium 133 mmol/L (136-145)
[2023-11-15 15:37] LABS: Bilirubin, Total 0.4 mg/dL (0.2-1.0); Total Protein 7.4 g/dL (5.7-8.2)
[2023-11-15 15:47] LABS: Urine Color Yellow (Yellow)
[2023-11-15 15:51] LABS: Glucose 452 mg/dL (74-106)
[2023-11-15] MEDS ORDERED: HYDROmorphone HCL 2 MG/ML VL/or syr IV PRN (16:00)
[2023-11-15] MEDS ORDERED: ACETAMINOPHEN 325 MG TAB PO PRN (16:00)
[2023-11-15] MEDS ORDERED: VANCOMYCIN PER PHARMACY 0 MG IV SCH (16:00)
[2023-11-15] MEDS ORDERED: DEXTROSE (50%) 50ML SYRG IV PRN (16:15)
[2023-11-15 17:22] LABS: Erythrocyte Sedimentation Rate 43 mm/hr (0-20)
[2023-11-15] MEDS: InsuLIN REG 1unit/0.01ml Soln (100units/ml) SC SCH ×2 (17:44→20:46)
[2023-11-15] MEDS: VANCOMYCIN 1GM/200ML 200 ML IV ONE (17:52)
[2023-11-15] MEDS: HYDROcodone-ACET 5/325MG TAB PO PRN (17:52)
[2023-11-15] MEDS: InsuLIN REG 1unit/0.01ml Soln (100units/ml) IV ONE (17:53)
[2023-11-15] MEDS: ACCU-CHEK COMFORT CURVE STRIP VI SCH (17:54)
[2023-11-15] MEDS: PIPERACILLIN-TAZOB 3.375GM 100 ML IV ONE (20:39)
[2023-11-15] MEDS: SODIUM CHLOR 0.9% PF (SALINE LOCK) 10ML VIAL/SYR IV SCH (20:48)
[2023-11-16] VITALS (9 sets, daily range): BP systolic 133–162; BP diastolic 80–94; PULSE 88–94; RESP 16–18; TEMP 97.6–98.5; O2SAT 94–98
[2023-11-16] MEDS ORDERED: PIPERACILLIN-TAZOB 3.375GM 100 ML IV SCH (02:00)
[2023-11-16] MEDS: PIPERACILLIN-TAZOB 3.375GM 100 ML IV SCH (05:43)
[2023-11-16] MEDS: VANCOMYCIN 1GM/200ML 200 ML IV SCH (06:05)
[2023-11-16] MEDS ORDERED: LORazepam 2MG/ML-1ML VIAL IV ONE (11:45)
[2023-11-16] MEDS: CEFEPIME 2GM/50ML NS 50 ML IV SCH (14:23)
[2023-11-16] MEDS ORDERED: [UNRECOGNIZED DRUG - CODE] (19:20)
[2023-11-16] MEDS ORDERED: GLUC1TES94 (19:20)
[2023-11-16] MEDS ORDERED: EMPA1TAB3 PO (19:20)
[2023-11-16] MEDS ORDERED: LIDO3CRE35 TOP (19:20)
[2023-11-16] MEDS ORDERED: INSU32MI9 SC (19:20)
[2023-11-16] MEDS ORDERED: KETO0.3S LEFTEYE (19:20)
[2023-11-16] MEDS ORDERED: METF-372 PO (19:20)
[2023-11-16] MEDS ORDERED: INSUINJ37 SC (19:20)
[2023-11-16] MEDS ORDERED: [UNRECOGNIZED DRUG - CODE] PO (19:20)
[2023-11-16] MEDS ORDERED: [UNRECOGNIZED DRUG - CODE] (19:20)
[2023-11-16] MEDS ORDERED: IBUP-1455 PO (19:20)
[2023-11-16] MEDS ORDERED: PRED1SUS4 LEFTEYE (19:20)
[2023-11-16] MEDS ORDERED: INSU100I54 SC (19:20)
[2023-11-16] MEDS ORDERED: DICL1GEL73 TOP (19:20)
[2023-11-16] MEDS ORDERED: LIDO1PAD55 TOP (19:20)
[2023-11-16] MEDS ORDERED: ATOR20TA50 PO (19:20)
[2023-11-16] MEDS ORDERED: INSU100I52 SC (19:20)
[2023-11-16] MEDS: INSULIN LANTUS (GLARGINE) 1 /0.01ml (100units/ml) SC SCH (21:23)
[2023-11-16] MEDS: DAKINS QUARTER STR 0.125% (NaHypochlorite) 473 ML TOPICAL SOL TOP SCH (21:25)
[2023-11-17] VITALS (7 sets, daily range): BP systolic 104–147; BP diastolic 59–98; PULSE 89–94; RESP 17–19; TEMP 98–98.2; O2SAT 94–98
[2023-11-17] MEDS: DOCUSATE SOD 100 MG CAP PO PRN (02:12)
[2023-11-17 06:08] LABS: Basophils # (auto) 0.1 10 ^3/uL (0-0.2); Basophils % (auto) 0.5 % (0.0-2.0); Chloride 104 mmol/L (98-107); Eosinophils # (auto) 0.1 10 ^3/uL (0-0.8); Eosinophils % (auto) 1.3 % (0.0-7.0); Hematocrit 41.4 % (36.0-46.0); Lymphocytes # (auto) 2.3 10 ^3/uL (0.4-5.4); Mean Corpuscular Hemoglobin 30.7 pg (28.0-32.0); Mean Corpuscular Volume 90.3 fL (80.0-100.0); Monocytes # (auto) 1.1 10 ^3/uL (0-1.3); Monocytes % (auto) 10.7 % (0.0-12.0); Neutrophils # (auto) 6.4 10 ^3/uL (1.6-8.6); Neutrophils % (auto) 64.5 % (37.0-80.0); Nucleated Red Blood Cells % 0.1 %; Potassium 3.9 mmol/L (3.5-5.1); Red Blood Cells 4.58 10^6/uL (4.0-5.20); Red Cell Distribution Width 13.4 % (11.8-14.3); Sodium 138 mmol/L (136-145); White Blood Cell 9.9 10^3/uL (4.4-10.8)
[2023-11-17 06:09] LABS: Anion Gap 6 (5-15); Carbon Dioxide 28 mmol/L (20-30)
[2023-11-17 06:13] LABS: INR 0.99 (0.9-1.15); Partial Thromboplastin Time 29.2 SEC (24.5-34.5); Prothrombin Time 10.4 sec (9.3-11.8)
[2023-11-17 06:14] LABS: BUN/Creatinine Ratio 17.6 (10.0-20.0); Blood Urea Nitrogen 15 mg/dL (9-23); Glucose 160 mg/dL (74-106)
[2023-11-18] VITALS (7 sets, daily range): BP systolic 110–145; BP diastolic 70–84; PULSE 86–99; RESP 16–19; TEMP 97.4–98.3; O2SAT 94–96
[2023-11-18] MEDS: INSULIN LANTUS (GLARGINE) 1 /0.01ml (100units/ml) SC SCH ×2 (01:25→22:40)
[2023-11-18] MEDS: LACTULOSE 20Gm/30ML SOLN PO ONE (16:25)
[2023-11-18] MEDS: DOCUSATE SOD 100 MG CAP PO ONE (16:25)
[2023-11-18] MEDS: levoFLOXacin 500MG 100 ML IV SCH (17:18)
[2023-11-18] MEDS: VANCOMYCIN 1GM/200ML 200 ML IV SCH (19:46)
[2023-11-19 05:00] VITALS: BP 124/68; PULSE 84; RESP 17; TEMP 98.2; O2SAT 95
[2023-11-19 09:09] VITALS: BP 146/83; PULSE 92; RESP 16; TEMP 98.9; O2SAT 95
[2023-11-19] MEDS ORDERED: DOXY-286 PO (10:56)
[2023-11-19] MEDS ORDERED: NITR-87 PO (10:56)
[2023-11-19 12:50] VITALS: BP 140/86; PULSE 85; RESP 15; TEMP 98.6; O2SAT 92
[2023-11-19 15:26] VITALS: BP 140/86; PULSE 85; RESP 15; TEMP 98.6; O2SAT 96
== END 2023-11-19 17:00 | disposition home health service (06) | DRG 383 ==
LOC: ER 14:17 → OVERFLOW 16:09 → WEST WING 16:09
PROVIDERS: ADMIT Internal Medicine; ATTEND Internal Medicine
PROC: 0JBR0ZZ Excision of Left Foot Subcutaneous Tissue and Fascia, Open Approach (ICD-10-PCS; principal; 2023-11-18)
DX: L03.116 Cellulitis of left lower limb (principal); E11.621 Type 2 diabetes mellitus with foot ulcer; N39.0 Urinary tract infection, site not specified; E11.65 Type 2 diabetes mellitus with hyperglycemia; B96.20 Unspecified Escherichia coli [E. coli] as the cause of diseases classified elsewhere; E66.9 Obesity, unspecified; I10 Essential (primary) hypertension; L03.032 Cellulitis of left toe; Z16.12 Extended spectrum beta lactamase (ESBL) resistance; Z90.710 Acquired absence of both cervix and uterus; Z90.49 Acquired absence of other specified parts of digestive tract; Z83.3 Family history of diabetes mellitus; Z82.49 Family history of ischemic heart disease and other diseases of the circulatory system; Z68.32 Body mass index [BMI] 32.0-32.9, adult
CPT/HCPCS: 36415; 73630; 73718; 80048; 80053; 80202; 81001; 82962; 83036; 83605; 85025; 85610; 85652; 85730; 86141; 87040; 87077; 87086; 87088; 87186; 87205; 97110; 97116; 97163; 97530; G0378; J0692; J1815; J1956; J2543

== ENCOUNTER 2023-12-04 19:23 | Emergency (ER) | payer MEDICAID ==
[~2023-12-04] VITALS: Ht 152.4 cm; Wt 81.6 kg
[~2023-12-04 19:23] MED LIST changes: +ATOR20TA50 PO; -BACDST PO; -CEPH500C PO; +DICL1GEL73 TOP; +DOXY-286 PO; +EMPA1TAB3 PO; -ESCI1TAB36 PO; +GLUC1TES94; -IBUP-1456 PO; -INSLANTI SC; -INSU100I2 SC; +INSU100I54 SC; +INSU32MI9 SC; +INSUINJ37 SC; +KETO0.3S LEFTEYE; +LIDO1PAD55 TOP; +LIDO3CRE35 TOP; -LISI20TA56 PO; -METF-370 PO; +METF-372 PO; +NITR-87 PO; +PRED1SUS4 LEFTEYE; +[UNRECOGNIZED DRUG - CODE]; +[UNRECOGNIZED DRUG - CODE]
[2023-12-04 19:43] VITALS: BP 157/86; PULSE 104; RESP 16; TEMP 98; O2SAT 98
[2023-12-04] MEDS: diphenhdrAMINE HCL 50 MG/1 ML VL IM ONE (23:37)
== END 2023-12-05 00:58 | disposition home or self-care (01) ==
LOC: ER 19:23
DX: L25.8 Unspecified contact dermatitis due to other agents (principal); T50.905A Adverse effect of unspecified drugs, medicaments and biological substances, initial encounter; E11.9 Type 2 diabetes mellitus without complications; I10 Essential (primary) hypertension; Z90.49 Acquired absence of other specified parts of digestive tract; Z90.710 Acquired absence of both cervix and uterus; Y92.9 Unspecified place or not applicable
CPT/HCPCS: 96372; 99283; J1200

== ENCOUNTER 2024-08-10 08:30 | Emergency (ER) | payer MEDICAID ==
[~2024-08-10] VITALS: Ht 152.4 cm; Wt 79.2 kg
[~2024-08-10 08:30] MED LIST changes: +CLIN150C PO
[2024-08-10 09:04] VITALS: BP 158/57; PULSE 88; RESP 16; TEMP 98; O2SAT 98
[2024-08-10] MEDS ORDERED: CEPH500C PO (09:05)
--- NOTE | 2024-08-10 09:05 | ED.PDOC ---
History of Present Illness(SKN HPI Comments 59 year old presents for bulla to the left 5th lateral phalanx mechanism of injury: friction from new shoes c/o pain to touch denies f/c/n/v/d Chief Complaint: Wound Check Time Seen by MD: 08:48 Primary Care Provider: DAYAN History of Present Illness: Nurses Notes, Medications, Allergies Allergies: Coded Allergies: NO KNOWN ALLERGIES (Unverified , 11/01/14) Home Meds Active Scripts Cephalexin Monohydrate (Cephalexin) 500 Mg Cap, 1 CAP PO QID for 5 Days, #20 CAP 0 Refills Prov:JAMES MARTINEZ SCALE ATTENDANT 08/10/24 Clindamycin Hcl (CLEOCIN) 150 Mg Cap, 1 CAP PO QID, #40 CAP Prov:AMANDA GILLESPIE MD 12/24/23 Nitrofurantoin Monohydrate Mac (Macrobid) 100 Mg Cap, 100 MG PO BID for 7 Days, #14 CAP Prov:NICHOLAS ARCHIBALD MD 11/19/23 Doxycycline Hyclate (DOXYCYCLINE HYCLATE) 100 Mg Tab, 100 MG PO BID for 10 Days, #20 TAB Prov:NICHOLAS ARCHIBALD MD 11/19/23 Reported Medications Diclofenac Sodium (Topical) (Diclofenac Sodium) 1 % Gel, 2 TOP BID 11/16/23 Insulin Pen Needle (Bd Pen Needle/Elma/Ultra) 32 Gx4mm Mis, EA SC DAILY 11/16/23 Insulin Glargine (Lantus Solostar) 100 Unit/Ml Inj, 89 UNIT SC HS 11/16/23 Prednisolone Acetate (Ophth) (Pred Forte) 1 % Viri, 1 DROP LEFTEYE QID 11/16/23 Lidocaine HCl (Lidocaine Hydrochloride) 3 % Cre, TOP 11/16/23 Insulin Lispro (Insulin Lispro Kwikpen) 100 Unit/Ml Inj, 20 UNIT SC TID Inject per sliding scale. Max 20 units per dose. 11/16/23 Atorvastatin Calcium (ATORVASTATIN CALCIUM) 20 Mg Tab, 1 TAB PO DAILY 11/16/23 Empagliflozin (Jardiance) 25 Mg Tab, 1 TAB PO DAILY 11/16/23 Lancets (Fora Lancets) Lancets Mis 11/16/23 Glucose Blood (Fora Gtel Blood Glucose T) 1 Magnolia Magnolia 11/16/23 Ketorolac Tromethamine (Ophth) (Ketorolac Tromethamine) 0.4 % Brook, 1 DROP LEFTEYE QID 11/16/23 Metformin Hydrochloride (Metformin Hcl) 1,000 Mg Tab, 1 TAB PO BID 11/16/23 Insulin Syringe/Needle U-100 (Insulin Syringe/U-100/1ML) 1 Ml/31 G Mis, QID 11/16/23 Lidocaine (Lidocaine) 5 % Pad, 2 PAD TOP DAILY Apply 2 patches topically to the skin every day. May wear up to 12 hours on and 12 hours off. 11/16/23 Information Source: Patient Mode of Arrival: Ambulatory Past Medical History PAST MEDICAL HISTORY: DM, High Lipids, UTI'S Surgical History: Appendectomy, Cholecystectomy, , Hysterectomy STATUARY PAINTER History: No Pertinent STATUARY PAINTER History Family History Family History: Reviewed,noncontributory to illness Social History Smoker: Non-Smoker Alcohol: Denies ETOH Use Drugs: Denies Drug Use Lives In: Home All Other Systems: Reviewed and Negative (Per HPI) Physical Exam General Appearance: No Apparent Distress, Normal HEENT: Normal ENT Inspection, Pharynx Normal, TMs Normal Neck: Full Range of Motion, Non-Tender, Normal, Normal Inspection Respiratory: Chest Non-Tender, Lungs Clear, No Accessory Muscle Use, No Respiratory Distress, Normal Breath Sounds Cardiovascular: No Edema, No JVD, No Murmur, No Gallop, Normal Peripheral Pulses, Regular Rate/Rhythm Breast Exam: Deferred Gastrointestinal: No Organomegaly, Non Tender, No Pulsatile Mass, Normal Bowel Sounds, Soft Genitalia: Deferred Pelvic: Deferred Rectal: Deferred Extremities: No calf tenderness, Normal capillary refill, Normal inspection, Normal range of motion, Non-tender, No pedal edema Musculoskeletal : Apperance: Normal Neurologic: Alert, paunch trimmer II-XII nml as Tested, No Motor Deficits, Normal Affect, Normal Mood, No Sensory Deficits Cerebellar Function: Normal Reflexes: Normal Skin: Dry, Normal Color, Warm Lymphatic: No Adenopathy Was a procedure done? Was a procedure done?: Yes Sedation Sedation?: No Incision and Drainage Incision and Drainage: Abscess Location left foot Preparation: Betadine Incision and Wound: Pus Informed consent obtained: Yes Risks/benefits/alt described: Yes Differential Diagnosis (INTG) Differential Diagnosis: Abrasion X-Ray, Labs, Meds, VS Vital Signs Date Time Temp Pulse Resp B/P (MAP) Pulse Ox O2 Delivery O2 Flow Rate FiO2 08/10/24 09:04 88 16 98 Room Air 08/10/24 09:04 98.0 88 16 158/57 (90) 98 98.0 08/10/24 08:42 98.0 88 16 158/57 (90) 98 Current Medications Medications (Trade) Dose Ordered Sig/Vini Route Start Time Stop Time Status Last Admin Ceftriaxone Sodium (Rocephin) 1,000 mg ONCE ONCE IM 08/10/24 09:30 08/10/24 09:31 DC 08/10/24 09:40 X-Ray, Labs, Meds, VS Comment ROS physical examination no red flags. Findings consistent with the abscess. Patient verbally agreed to incision and drainage. X-ray was ordered to rule out osteomyelitis. Patient is stable for discharge at this time. Take medications as prescribed return precautions discussed On reevaluation, patient had symptomatic improvement. Patient is stable for discharge at this time. External notes reviewed. Test results and diagnostic imaging interpreted. All diagnostic findings, discharge care, education and instructions provided Follow-up with PCP in 2 to 3 days Patient verbalized understanding and agreed to treatment plan Vital signs stable, afebrile, no acute distress noted Patient ambulatory with strong steady gait Advised to return precautions for any new or worsening symptoms, return to ER immediately for re-evaluation Patient is aware that the purpose of this visit was for an acute medical emergency requiring emergent stabilization. Chronic conditions, including malignancies have not been ruled out. Patient is instructed to follow up with PCP as directed and discharge instructions for continued care and workup. If unable to arrange follow-up, patient is to return to the emergency department for reassessment. Patient (parent or legal guardian if applicable) was given verbal and written discharge instructions and acknowledges understanding. Time of 1ST Reevaluation: 10:00 Reevaluation 1ST: Improved Patient Education/Counseling: Diagnosis, Treatment Family Education/Counseling: Diagnosis, Treatment Departure 1 Departure Time of Disposition: 10:27 Impression: Primary Impression: Bullae Disposition: HOME / SELF CARE / HOMELESS Condition: Stable e-Prescriptions Cephalexin Monohydrate (Cephalexin) 500 Mg Cap 1 CAP PO QID for 5 Days, #20 CAP 0 Refills Prov: JAMES MARTINEZ NP 08/10/24 Discharged With: Self Critical Care Note Critical Care Time?: No Stability Stability form required: No Heart Score Heart Score: Heart Score Response (Comments) Value History N/A 0 EKG N/A 0 Age N/A 0 Risk Factors N/A 0 Troponin N/A 0 Total 0 JAMES MARTINEZ NP Aug 10, 2024 09:05
[2024-08-10] MEDS: cefTRIAXone SOD 1,000 MG VL IM ONE (09:40)
--- NOTE | 2024-08-10 10:14 | DVH ---
CLINICAL INDICATION: osteo TECHNIQUE: XY L FOOT 3 VIEW XRAY Comparison: XY L FOOT 3 VIEW XRAY on DOS: 11/15/23, XY L WRIST 3+ VIEW XRAY on DOS: 08/08/23, XY L WRI ST 3+ VIEW XRAY on DOS: 06/27/23, XY R FOOT 2 VIEW XRAY on DOS: 02/23/23 FINDINGS/IMPRESSION: There is no evidence of acute fracture or dislocation. The visualized joint space is well maintained. The alignment is anatomical. There is no radiopaque foreign body.
== END 2024-08-10 10:30 | disposition home or self-care (01) ==
LOC: ER 08:30
DX: R23.8 Other skin changes (principal); E11.9 Type 2 diabetes mellitus without complications; E78.5 Hyperlipidemia, unspecified; Z79.899 Other long term (current) drug therapy; Z90.49 Acquired absence of other specified parts of digestive tract; Z90.89 Acquired absence of other organs; Z98.890 Other specified postprocedural states
CPT/HCPCS: 10060; 73630; 96372; 99283; J0696

== ENCOUNTER 2025-02-15 08:21 | Inpatient (IN) | payer MEDICAID ==
[~2025-02-15] VITALS: Ht 152.4 cm; Wt 79.6 kg
[~2025-02-15 08:21] MED LIST changes: +CEPH500C PO
--- NOTE | 2025-02-15 10:31 | ED.PDOC ---
Musculoskeletal HPI Comments A 60 year old female presents to the emergency department with a chief complaint of possible cellulitis of LT foot onset 4 days. Patient has a PMHx HLD, neuropathy, DM insulin dependent. She was cutting toenails of LT foot, believes she cut into skin, shortly after began experiencing redness, swelling and pain on toenails of LT foot. Patient is able to walk, has not noticed draining. Last tetanus vaccine was July 2024. No other symptoms or modifying factors present at this time. Still able to bear weight Denies previous surgeries to the ankle/foot Denies fever chills night sweats nausea, vomiting, diarrhea Denies drainage Chief Complaint: Extremity Swelling Time Seen by MD: 09:30 Primary Care Provider: DAYAN Reviewed Notes: Medications, Allergies Allergies: Coded Allergies: NO KNOWN ALLERGIES (Unverified , 11/01/14) Home Meds Active Scripts Cephalexin Monohydrate (Cephalexin) 500 Mg Cap, 1 CAP PO QID for 5 Days, #20 CAP 0 Refills Prov:JAMES MARTINEZ NP 08/10/24 Clindamycin Hcl (CLEOCIN) 150 Mg Cap, 1 CAP PO QID, #40 CAP Prov:AMANDA GILLESPIE MD 12/24/23 Nitrofurantoin Monohydrate Mac (Macrobid) 100 Mg Cap, 100 MG PO BID for 7 Days, #14 CAP Prov:NICHOLAS ARCHIBALD MD 11/19/23 Doxycycline Hyclate (DOXYCYCLINE HYCLATE) 100 Mg Tab, 100 MG PO BID for 10 Days, #20 TAB Prov:NICHOLAS ARCHIBALD MD 11/19/23 Reported Medications Diclofenac Sodium (Topical) (Diclofenac Sodium) 1 % Gel, 2 TOP BID 11/16/23 Insulin Pen Needle (Bd Pen Needle/Elma/Ultra) 32 Gx4mm Mis, EA SC DAILY 11/16/23 Insulin Glargine (Lantus Solostar) 100 Unit/Ml Inj, 89 UNIT SC HS 11/16/23 Prednisolone Acetate (Ophth) (Pred Forte) 1 % Viri, 1 DROP LEFTEYE QID 11/16/23 Lidocaine HCl (Lidocaine Hydrochloride) 3 % Cre, TOP 11/16/23 Insulin Lispro (Insulin Lispro Kwikpen) 100 Unit/Ml Inj, 20 UNIT SC TID Inject per sliding scale. Max 20 units per dose. 11/16/23 Atorvastatin Calcium (ATORVASTATIN CALCIUM) 20 Mg Tab, 1 TAB PO DAILY 11/16/23 Empagliflozin (Jardiance) 25 Mg Tab, 1 TAB PO DAILY 11/16/23 Lancets (Fora Lancets) Lancets Mis 11/16/23 Glucose Blood (Fora Gtel Blood Glucose T) 1 Magnolia Magnolia 11/16/23 Ketorolac Tromethamine (Ophth) (Ketorolac Tromethamine) 0.4 % Brook, 1 DROP LEFTEYE QID 11/16/23 Metformin Hydrochloride (Metformin Hcl) 1,000 Mg Tab, 1 TAB PO BID 11/16/23 Insulin Syringe/Needle U-100 (Insulin Syringe/U-100/1ML) 1 Ml/31 G Mis, QID 11/16/23 Lidocaine (Lidocaine) 5 % Pad, 2 PAD TOP DAILY Apply 2 patches topically to the skin every day. May wear up to 12 hours on and 12 hours off. 11/16/23 Information Source: Patient Mode of Arrival: Ambulatory Location: Left Extremity Location: Foot, Nail/Nailbed Timing: Days Prehospital treatment: None Severity: Moderate Able to Move Extremity: Yes Bear Weight: Limited Pain: Moderate Mechanism: Other (cutting toenails) Circumstances: Other Onset of Symptoms: After Trauma Symptoms: Swelling, Pain, Erythema DVT Risk Factors: NONE Last Tetanus: UTD Associated signs and symptoms: Foot pain Past Medical History PAST MEDICAL HISTORY: DM, High Lipids, UTI'S Past Medical History (Other): neuropathy Surgical History: Appendectomy, Cholecystectomy, , Hysterectomy [employer] History: No Pertinent [employer] History Family History Family History: Reviewed,noncontributory to illness Social History Smoker: Non-Smoker Alcohol: Denies ETOH Use Drugs: Denies Drug Use Lives In: Home All Other Systems: Reviewed and Negative (as per HPI) Physical Exam General Appearance: No Apparent Distress, Normal HEENT: Normal ENT Inspection, Pharynx Normal, TMs Normal Neck: Full Range of Motion, Non-Tender, Normal, Normal Inspection Respiratory: Chest Non-Tender, Lungs Clear, No Accessory Muscle Use, No Respiratory Distress, Normal Breath Sounds Cardiovascular: No Edema, No JVD, No Murmur, No Gallop, Normal Peripheral Pulses, Regular Rate/Rhythm Breast Exam: Deferred Gastrointestinal: No Organomegaly, Non Tender, No Pulsatile Mass, Normal Bowel Sounds, Soft Genitalia: Deferred Pelvic: Deferred Rectal: Deferred Extremities: No calf tenderness Musculoskeletal : Location: Left Extremity Location: Foot (severe swelling to 2nd phalange, erythema noted to all 5 phalanges, erythema extends to inferior extensor retinaculum, skin blanchanable, unable to bend phalanges) Apperance: Normal Neurologic: Alert, conservation agent II-XII nml as Tested, No Motor Deficits, Normal Affect, Normal Mood, No Sensory Deficits Cerebellar Function: Normal Reflexes: Normal Skin: Dry, Normal Color, Warm Lymphatic: No Adenopathy Was a procedure done? Was a procedure done?: No Differential Diagnosis EXT Differential Diagnosis: Cellulitis, Gout, Septic, Neurovascular injury, Arthritis, Other X-Ray, Labs, Meds, VS Vital Signs Date Time Temp Pulse Resp B/P (MAP) Pulse Ox O2 Delivery O2 Flow Rate FiO2 02/15/25 14:34 97.6 80 16 161/91 (114) 96 97.6 02/15/25 09:37 89 16 95 Room Air 02/15/25 09:37 98.1 89 16 138/87 (104) 95 98.1 02/15/25 08:38 98.1 88 18 148/79 (102) 97 98.1 Lab Test 02/15/25 10:19 02/15/25 10:07 Range/Units White Blood Count 9.5 4.4-10.8 10^3/uL Red Blood Count 4.93 4.0-5.20 10^6/uL Hemoglobin 15.2 12.2-16.2 g/dL Hematocrit 45.2 36.0-46.0 % Mean Corpuscular Volume 91.8 80.0-100.0 fL Mean Corpuscular Hemoglobin 31.0 28.0-32.0 pg Mean Corpuscular Hemoglobin Concent 33.7 32.0-36.0 g/dL Red Cell Distribution Width 13.1 11.8-14.3 % Platelet Count 175 140-450 10^3/uL Mean Platelet Volume 8.7 6.9-10.8 fL Neutrophils (%) (Auto) 70.6 37.0-80.0 % Lymphocytes (%) (Auto) 18.0 10.0-50.0 % Monocytes (%) (Auto) 9.8 0.0-12.0 % Eosinophils (%) (Auto) 1.0 0.0-7.0 % Basophils (%) (Auto) 0.6 0.0-2.0 % Neutrophils # (Auto) 6.7 1.6-8.6 10 ^3/uL Lymphocytes # (Auto) 1.7 0.4-5.4 10 ^3/uL Monocytes # (Auto) 0.9 0-1.3 10 ^3/uL Eosinophils # (Auto) 0.1 0-0.8 10 ^3/uL Basophils # (Auto) 0.1 0-0.2 10 ^3/uL Nucleated Red Blood Cells 0.0 % Erythrocyte Sedimentation Rate 23 H 0-20 mm/hr Sodium Level 140 136-145 mmol/L Potassium Level 4.3 3.5-5.1 mmol/L Chloride Level 106 98-107 mmol/L Carbon Dioxide Level 28 20-31 mmol/L Anion Gap 6 5-15 Blood Urea Nitrogen 11 9-23 mg/dL Creatinine 0.86 0.550-1.02 mg/dL Glomerular Filtration Rate Calc 78 >90 mL/min BUN/Creatinine Ratio 12.8 10.0-20.0 Serum Glucose 163 H 74-106 mg/dL Lactic Acid Level 1.0 0.4-2.0 mmol/L Calcium Level 10.0 8.7-10.4 mg/dL C-Reactive Protein High Sensitivity 1.88 H <1.0 mg/dL Urine Color Light-yellow Yellow Urine Clarity Turbid H Clear Urine pH 6.0 5.0-9.0 Urine Specific [place] 1.021 1.001-1.035 Urine Protein Negative Negative Urine Ketones Negative Negative Urine Blood Negative Negative /uL Urine Nitrite 2+ H Negative Urine Bilirubin Negative Negative Urine Urobilinogen Normal Negative mg/dL Urine Leukocyte Esterase 3+ Negative /uL Urine RBC 2 0 - 4 /hpf Urine Microscopic WBC 64 H 0-5 /HPF Urine Squamous Epithelial Cells Few <5 /hpf Urine Bacteria Mod H None Seen /hpf Urine Mucus Few None Seen Urine Glucose 4+ H Normal mg/dL Microbiology Date/Time Source Procedure Growth Status 02/15/25 10:07 Voided Urine Urine Culture - Final Complete PATIENT: ARIADNA GUSTAFSON DACCT: [id number]: [id number] : 1965 LOC: ER ROOM / BED: / AGE / SEX: 60 / F ADM STATUS: REG ER SERVICE 1201 ORDERING PHYSICIAN: JAMES MARTINEZ NP PROCEDURE(s): LE1CR - LT LOWER EXTREMITY W CONTRAS REASON: Cellulitis vs abscess vs OM to L foot ORDER NUMBER(s): [id number], ACCESSION NUMBER(s): [id number] CLINICAL INDICATION: Cellulitis vs abscess vs OM to L foot TECHNIQUE: CT of the left foot was performed with intravenous contrast. 100 mL omnipaque 300 contrast was used. Coronal and sagittal reformatted images are provided. COMPARISON: None CT Dose: CTDI volume is mGy. Dose-length product is mGy*cm FINDINGS: No fracture or dislocation. No cortical destruction or periosteal reaction. No erosions. Soft tissue swelling forefoot surrounding the toes. No fluid collection. Normal vascular enhancement. IMPRESSION: 1. Forefoot soft tissue swelling, nonspecific but may reflect cellulitis. No fluid collection. 2. No CT evidence of osteomyelitis. All CT scans at this medical facility are performed using dose modulation techniques as appropriate to a performed exam including the following: Automated exposure control was utilized; adjustment of the MA and/or KV according to patient size; and use of iterative reconstruction technique. ATED BY: DONA HERNANDEZ MD DICTATED DATE/TIME: 02/15/25 1304 SIGNED BY: DONA HERNANDEZ MD SIGNED DATE/TIME: 02/15/25 1304 CC: X-Ray, Labs, Meds, VS Comment A 60 year old female presents to the emergency department with a chief complaint of possible cellulitis of LT foot onset 3 days. Pt with hx of DM and is insulin dependent. Arrives alert and oriented, ABC's intact, afebrile, vital signs stable, saturating well in room air After ROS and physical examination, differentials considered but not limited to: Fracture, abscess formation, deep tissue infection, cellulitis, osteomyelitis Peripheral IV insertion+ labs were ordered. CBC was ordered to exclude anemia, blood loss, or infection. BMP was ordered to rule out electrolyte abnormalities, hyperglycemia. Urinalysis was ordered to rule out UTI or hematuria. CT of the foot shows: 1. Forefoot soft tissue swelling, nonspecific but may reflect cellulitis. No fluid collection. 2. No CT evidence of osteomyelitis. Labs showed: WBC 9.5, neutrophils 78.6, hemoglobin 15.2, electrolytes reassuring, creatinine 0.86, GFR 78, serum glucose 63, lactic 1.0, CRP one 1.88,urine nitrate plus two, leuk esterase plus three, urine WBC 64, urine glucose 4 The patient was treated with broad spectrum ABx Rocephin The patient presents with s/s consistent with cellulitis of the left foot. Patients work up was remarkable for UTI The patient's workup reveals that the patient needs further evaluation and/or treatment for the above medical conditions. Patient may benefit from a podiatry consultation Patient verbalized understanding of the above and is awaiting further evaluation by the admitting service. Time of 1ST Reevaluation: 10:00 Reevaluation 1ST: Unchanged Patient Education/Counseling: Diagnosis, Treatment, Prognosis, Need For Follow Up Family Education/Counseling: No Family Present Sepsis Sepsis Reasesment Focused Exam Orders: Laboratory Tests 02/15/25 10:19: Lactic Acid Level 1.0 Departure 1 Departure Time of Disposition: 13:21 Impression: Primary Impression: Cellulitis of left foot Additional Impression: UTI (lower urinary tract infection) Disposition: ADMITTED INPATIENT Condition: Serious Critical Care Note Critical Care Time?: No Stability Stability form required: No I personally scribed for JAMES MARTINEZ NP ([email or web address]) on 02/15/25 at 10:31. Electronically submitted by Sonja Alegria ([email or web address]). I personally scribed for JAMES MARTINEZ NP ([email or web address]) on 02/15/25 at 11:20. Electronically submitted by Sonja Alegria ([email or web address]). JAMES MARTINEZ NP February 15, 2025 10:31
[2025-02-15 10:36] LABS: Basophils # (auto) 0.1 10 ^3/uL (0-0.2); Basophils % (auto) 0.6 % (0.0-2.0); Eosinophils # (auto) 0.1 10 ^3/uL (0-0.8); Hematocrit 45.2 % (36.0-46.0); Hemoglobin 15.2 g/dL (12.2-16.2); Lymphocytes # (auto) 1.7 10 ^3/uL (0.4-5.4); Mean Corpuscular Hgb Conc. 33.7 g/dL (32.0-36.0); Mean Corpuscular Volume 91.8 fL (80.0-100.0); Monocytes # (auto) 0.9 10 ^3/uL (0-1.3); Monocytes % (auto) 9.8 % (0.0-12.0); Neutrophils # (auto) 6.7 10 ^3/uL (1.6-8.6); Neutrophils % (auto) 70.6 % (37.0-80.0); Platelet Count (auto) 175 10^3/uL (140-450); Red Blood Cells 4.93 10^6/uL (4.0-5.20); Red Cell Distribution Width 13.1 % (11.8-14.3); White Blood Cell 9.5 10^3/uL (4.4-10.8)
[2025-02-15 10:41] LABS: Urine Bacteria MOD /hpf (None Seen); Urine Blood Negative /uL (Negative); Urine Clarity Turbid (Clear); Urine Color Light-Yellow (Yellow); Urine Mucus FEW (None Seen); Urine Protein, UAD Negative (Negative); Urine Specific Gravity 1.021 (1.001-1.035); Urine Squamous Epithelial Cell FEW /hpf (<5); Urine Urobilinogen Normal (Negative); Urine WBC 64 /HPF (0-5)
[2025-02-15 10:44] LABS: Chloride 106 mmol/L (98-107); Potassium 4.3 mmol/L (3.5-5.1); Sodium 140 mmol/L (136-145)
[2025-02-15 10:45] LABS: Anion Gap 6 (5-15); Carbon Dioxide 28 mmol/L (20-31)
[2025-02-15 10:51] LABS: BUN/Creatinine Ratio 12.8 (10.0-20.0); Blood Urea Nitrogen 11 mg/dL (9-23); Glucose 163 mg/dL (74-106)
[2025-02-15 11:01] LABS: CRP High Sensitivity 1.88 mg/dL (<1.0)
[2025-02-15 11:09] LABS: Erythrocyte Sedimentation Rate 23 mm/hr (0-20)
--- NOTE | 2025-02-15 13:06 | DVH ---
CLINICAL INDICATION: Cellulitis vs abscess vs OM to L foot TECHNIQUE: CT of the left foot was performed with intravenous contrast. 100 mL omnipaque 300 contrast was used. Coronal and sagittal reformatted images are provided. COMPARISON: None CT Dose: CTDI volume is mGy. Dose-length product is mGy*cm FINDINGS: No fracture or dislocation. No cortical destruction or periosteal reaction. No erosions. S oft tissue swelling forefoot surrounding the toes. No fluid collection. Normal vascular enhancement. IMPRESSION: 1. Forefoot soft tissue swelling, nonspecific but may reflect cellulitis. No fluid collection. 2. No CT evidence of osteomyelitis. All CT scans at this medical facility are performed using dose modulation techniques as appropriate t o a performed exam including the following: Automated exposure control was utilized; adjustment of th e MA and/or KV according to patient size; and use of iterative reconstruction technique.
[2025-02-15] MEDS ORDERED: DOCUSATE SOD 100 MG CAP PO PRN (14:15)
[2025-02-15] MEDS ORDERED: HYDROcodone-ACET 5/325MG TAB PO PRN (14:15)
[2025-02-15] MEDS ORDERED: DEXTROSE (50%) 50ML SYRG IV PRN (14:15)
[2025-02-15] MEDS ORDERED: ONDANSETRON HCL 4 MG/2 ML VIAL IV PRN (14:15)
[2025-02-15] MEDS ORDERED: ACETAMINOPHEN 325 MG TAB PO PRN (14:15)
[2025-02-15] MEDS ORDERED: hydrALAZINE HCL 20 MG/ML VL IV PRN (14:15)
[2025-02-15] MEDS: cefTRIAXone 1GM/50ML D5W 50 ML IV ONE (15:04)
--- NOTE | 2025-02-15 15:40 | DVHHP2 ---
History of Present Illness Reason for Visit: Cellulitis of left foot History of Present Illness The patient is a 60-year-old female with past medical history of hyperlipidemia, UTIs, neuropathy, and diabetes mellitus who presented to [facility] ED for evaluation of left 2nd toe diabetic ulcer. Patient reports she was cutting her left toenail when she caught into the skin, afterwards she began experiencing. redness, swelling, and pain of the left foot. Patient was seen and evaluated in the ED, laboratory data shows WBC 9.5, platelets 175, sodium 140, potassium 4.3, BUN 11, creatinine 0.86, glucose 163, lactic acid 1.0, ESR 23, C- reactive protein 1.88, urinalysis positive for urinary tract infection. Left foot CT revealing soft tissue swelling, nonspecific but may reflect cellulitis, no fluid collection, no evidence of osteomyelitis. Patient was started on IV antibiotic regimen Rocephin, please see medication orders section in the computer. On my assessment, patient denied chest pain, no headache, no dizziness, no diaphoresis, no shortness of breaths, no nausea, no vomiting, no fever, no chills. Patient was admitted for further evaluation and medical management. Past Medical History DM, High Lipids, UTI'S, Neuropathy Past Surgical History Appendectomy, Cholecystectomy, , Hysterectomy Family History Reviewed, noncontributory to the management of this case. Past Social History The patient lives at home, denies smoking, alcohol or illicit drugs abuse. Review of Systems Constitutional: No: Fever, Chills, Sweats, Weakness, Malaise, Other Eyes: No: Pain, Vision change, Conjunctivae inflammation, Eyelid inflammation, Other, Redness ENT: No: Ear pain, Ear discharge, Nose pain, Nose discharge, Nose congestion, Mouth pain, Mouth swelling, Throat pain, Throat swelling, Other Respiratory: No: Cough, Dry, Shortness of breath, SOB with excertion, Wheezing, Hemoptysis, Pleuritic Pain, Sputum, Wheezing, Other Cardiovascular: No: Chest Pain, Palpitations, Orthopnea, Paroxysmal Noc. Dyspnea, Edema, Lt Headedness, Other Gastrointestinal: No: Nausea, Vomiting, Abdominal Pain, Diarrhea, Constipation, Melena, Hematochezia, Other Genitourinary: No Dysuria, No Frequency, No Incontinence, No Hematuria, No Retention, No Other Musculoskeletal: other (Foot swelling/pain); No: neck pain, shoulder pain, arm pain, back pain, hand pain, leg pain, foot pain Skin: Lesions (Left 2nd toe), Other (Left foot redness ); No: Rash, Jaundice, Bruising Neurological: No: Weakness, Numbness, Incoordination, Change in speech, Conf usion, Seizures, Other Allergies: Coded Allergies: NO KNOWN ALLERGIES (Unverified , 11/01/14) Medications Current Medications Medications Dose Ordered Sig/Vini Route Start Time Stop Time Status Last Admin Dose Admin Ceftriaxone Sodium 50 ml @ 100 mls/hr DAILY@09 IV 02/16/25 09:00 Hydralazine HCl 10 mg Q6HP PRN IV 02/15/25 14:15 Atorvastatin Calcium 20 mg HS PO 02/15/25 22:00 Diagnostic Test (Pha) 1 strip ACHS 02/15/25 17:00 Insulin Human Regular ACHS SC 02/15/25 17:00 Dextrose 50 ml UD PRN IV 02/15/25 14:15 Sodium Chloride 10 ml Q8HR IV 02/15/25 22:00 Acetaminophen/ Hydrocodone Bitart 1 tab Q4HP PRN PO 02/15/25 14:15 Ondansetron HCl 4 mg Q4HP PRN IV 02/15/25 14:15 Docusate Sodium 100 mg BIDPRN PRN PO 02/15/25 14:15 Acetaminophen 650 mg Q6HP PRN PO 02/15/25 14:15 Exam Vital Signs Vital Signs Date Time Temp Pulse Resp B/P (MAP) Pulse Ox O2 Delivery O2 Flow Rate FiO2 02/15/25 14:34 97.6 80 16 161/91 (114) 96 97.6 02/15/25 09:37 Room Air General Appearance: Alert, Oriented X3, Cooperative, No acute distress HEENT: Atraumatic, PERRLA, EOMI, Mucous membr. moist/pink Respiratory: Clear to auscultation, Normal air movement Cardiovascular: Regular rate, Normal S1, Normal S2, No murmurs Abdominal: Normal bowel sounds, Soft, No tenderness, No hepatospenomegaly, No masses Extremities: No clubbing, No cyanosis, Normal pulses, Other (Left foot swelling/tenderness) Skin: No rashes, No breakdown, No significant lesion Neuro: Normal gait, Normal speech, Strength at 5/5 X4 ext, Normal tone, Sensation intact, Cranial nerves 3-12 NL, Reflexes 2+ Psych/Mental Status: Mental status NL, Mood NL Labs/Xrays Labs Test 02/15/25 10:19 02/15/25 10:07 Range/Units White Blood Count 9.5 4.4-10.8 10^3/uL Red Blood Count 4.93 4.0-5.20 10^6/uL Hemoglobin 15.2 12.2-16.2 g/dL Hematocrit 45.2 36.0-46.0 % Mean Corpuscular Volume 91.8 80.0-100.0 fL Mean Corpuscular Hemoglobin 31.0 28.0-32.0 pg Mean Corpuscular Hemoglobin Concent 33.7 32.0-36.0 g/dL Red Cell Distribution Width 13.1 11.8-14.3 % Platelet Count 175 140-450 10^3/uL Mean Platelet Volume 8.7 6.9-10.8 fL Neutrophils (%) (Auto) 70.6 37.0-80.0 % Lymphocytes (%) (Auto) 18.0 10.0-50.0 % Monocytes (%) (Auto) 9.8 0.0-12.0 % Eosinophils (%) (Auto) 1.0 0.0-7.0 % Basophils (%) (Auto) 0.6 0.0-2.0 % Neutrophils # (Auto) 6.7 1.6-8.6 10 ^3/uL Lymphocytes # (Auto) 1.7 0.4-5.4 10 ^3/uL Monocytes # (Auto) 0.9 0-1.3 10 ^3/uL Eosinophils # (Auto) 0.1 0-0.8 10 ^3/uL Basophils # (Auto) 0.1 0-0.2 10 ^3/uL Nucleated Red Blood Cells 0.0 % Erythrocyte Sedimentation Rate 23 H 0-20 mm/hr Sodium Level 140 136-145 mmol/L Potassium Level 4.3 3.5-5.1 mmol/L Chloride Level 106 98-107 mmol/L Carbon Dioxide Level 28 20-31 mmol/L Anion Gap 6 5-15 Blood Urea Nitrogen 11 9-23 mg/dL Creatinine 0.86 0.550-1.02 mg/dL Glomerular Filtration Rate Calc 78 >90 mL/min BUN/Creatinine Ratio 12.8 10.0-20.0 Serum Glucose 163 H 74-106 mg/dL Lactic Acid Level 1.0 0.4-2.0 mmol/L Calcium Level 10.0 8.7-10.4 mg/dL C-Reactive Protein High Sensitivity 1.88 H <1.0 mg/dL Urine Color Light-yellow Yellow Urine Clarity Turbid H Clear Urine pH 6.0 5.0-9.0 Urine Specific [place] 1.021 1.001-1.035 Urine Protein Negative Negative Urine Ketones Negative Negative Urine Blood Negative Negative /uL Urine Nitrite 2+ H Negative Urine Bilirubin Negative Negative Urine Urobilinogen Normal Negative mg/dL Urine Leukocyte Esterase 3+ Negative /uL Urine RBC 2 0 - 4 /hpf Urine Microscopic WBC 64 H 0-5 /HPF Urine Squamous Epithelial Cells Few <5 /hpf Urine Bacteria Mod H None Seen /hpf Urine Mucus Few None Seen Urine Glucose 4+ H Normal mg/dL PATIENT: ARIADNA GUSTAFSON DACCT: [id number] UNIT: [id number] : 1965 LOC: ER ROOM / BED: / AGE / SEX: 60 / F ADM STATUS: REG ER SERVICE 1201 ORDERING PHYSICIAN: JAMES MARTINEZ NP PROCEDURE(s): LE1CR - LT LOWER EXTREMITY W CONTRAS REASON: Cellulitis vs abscess vs OM to L foot ORDER NUMBER(s): [id number], ACCESSION NUMBER(s): [id number] CLINICAL INDICATION: Cellulitis vs abscess vs OM to L foot TECHNIQUE: CT of the left foot was performed with intravenous contrast. 100 mL omnipaque 300 contrast was used. Coronal and sagittal reformatted images are provided. COMPARISON: None CT Dose: CTDI volume is mGy. Dose-length product is mGy*cm FINDINGS: No fracture or dislocation. No cortical destruction or periosteal reaction. No erosions. Soft tissue swelling forefoot surrounding the toes. No fluid collection. Normal vascular enhancement. IMPRESSION: 1. Forefoot soft tissue swelling, nonspecific but may reflect cellulitis. No fluid collection. 2. No CT evidence of osteomyelitis. Assessment/Plan Assessment/Plan Cellulitis of left foot Diabetic ulcer of left foot UTI (lower urinary tract infection) Uncontrolled diabetes mellitus Plan 1. Admit to med surge unit 2. Breathing treatment 3. Pain control management 4. IV antibiotic management 5. Management of fluids and electrolytes 6. Consultation for hospitalist/book canvasser/wound care 7. Diagnostic test left foot CT 8. DVT prophylaxis-on SCDs 9. Repeat labs CBC, CMP in a.m. 10. Home medication reviewed and reconciled 11. Continue with current medical management 12. Treatment plan discussed with patient and RN. Patient verbalized understanding. Plan discussed with: Patient, Other (RN) My Orders Orders - ROGELIO DESIR DNP Procedure Category Date Status Time Ceftriaxone 1gm/50ml PHA 02/16/25 In Process D5w (Rocephin) 09:00 Consistent DIET 02/15/25 Transmitted Carb(Ccho)Diabetes Dinner Hydralazine Injection PHA 02/15/25 In Process (Apresoline Inject 14:15 Atorvastatin (Lipitor) PHA 02/15/25 In Process 22:00 Urine Bacterial DAVID 02/15/25 In Process Culture 14:14 Glucose Blood PHA 02/15/25 In Process (Accu-Chek Comfort 17:00 Insulin R (Human) PHA 02/15/25 In Process (Insulin R) 17:00 Dextrose 50% Syringe PHA 02/15/25 In Process 14:15 Allergies DURGA 02/15/25 In Process 14:14 Code Status CODE 02/15/25 Transmitted 14:14 Sodium Chloride Lock PHA 02/15/25 In Process (Saline Lock Ns) 22:00 Oxygen Per Hour RT 02/15/25 Transmitted 14:14 Hydrocodone-Acet PHA 02/15/25 In Process 5/325mg Tab ([place] 14:15 Ondansetron Hcl PHA 02/15/25 In Process (Zofran) 14:15 Docusate Sodium PHA 02/15/25 In Process Capsule (Colace 14:15 Complete Blood Count LAB 02/16/25 Verified 04:00 Comprehensive LAB 02/16/25 Verified Metabolic Panel 04:00 Condition: Serious DURGA 02/15/25 In Process 14:14 Acetaminophen Tablet PHA 02/15/25 In Process (Tylenol Tablet) 14:15 Bedrest With Bathroom DURGA 02/15/25 In Process Privileg 14:14 Sequential DURGA 02/15/25 In Process Compression Device *Podiatry Consult Dr. MARTEL 02/15/25 Verified Fanous 15:37 Admit ADMIT 02/15/25 Verified 15:37 Nitroglycerin PHA 02/15/25 Verified Sublingual (Ntrostat 15:45 Morphine Sulfate [facility] 02/15/25 Verified Injection 15:45 Notify Of Changes [facility] 02/15/25 Verified From Base 15:37 Equipment Processor For [facility] 02/15/25 Verified 24 Hours 15:37 Emergency Dysrhythmia [facility] 02/15/25 Verified Protocol 15:37 Oxygen By Nasal RT 02/15/25 Verified Cannula 15:37 Vancomycin Per PHA 02/15/25 Verified Pharmacy 15:45 Problem List: (1) Cellulitis of left foot (2) Diabetic ulcer of left foot (3) UTI (lower urinary tract infection) (4) Uncontrolled diabetes mellitus Date of Service: February 15, 2025 Billing Provider: ROGELIO DESIR DNP Common Visit Codes: [id number] INP/OBS CARE (HIGH) ROGELIO DESIR DNP February 15, 2025 15:40
[2025-02-15] MEDS ORDERED: NITROGLYCERIN 0.4 MG SL TAB SL PRN (15:45)
[2025-02-15] MEDS ORDERED: VANCOMYCIN PER PHARMACY 0 MG IV SCH (15:45)
[2025-02-15] MEDS ORDERED: MORPHINE SULFATE INJ 2 MG/ml SYRG IV PRN (15:45)
[2025-02-15] MEDS: ACCU-CHEK COMFORT CURVE STRIP VI SCH (16:58)
[2025-02-15 17:00] VITALS: BP 153/94; PULSE 86; RESP 16; TEMP 97.9; O2SAT 98
[2025-02-15] MEDS: VANCOMYCIN 1GM/200ML PM 200 ML IV SCH (17:01)
[2025-02-15] MEDS: InsuLIN REG 1unit/0.01ml Soln (100units/ml) SC SCH (17:03)
[2025-02-15 17:54] VITALS: BP 153/94; PULSE 86; RESP 16; TEMP 97.9; O2SAT 98
[2025-02-15 21:00] VITALS: BP 137/75; PULSE 57; RESP 17; TEMP 98; O2SAT 95
[2025-02-15] MEDS: ATORVASTATIN 20 MG TAB PO SCH (22:24)
[2025-02-15] MEDS: SODIUM CHLOR 0.9% PF (SALINE LOCK) 10ML VIAL/SYR IV SCH (22:24)
[2025-02-16] VITALS (9 sets, daily range): BP systolic 104–161; BP diastolic 63–98; PULSE 53–89; RESP 16–20; TEMP 97.6–98.5; O2SAT 93–98
[2025-02-16 06:40] LABS: Basophils # (auto) 0.1 10 ^3/uL (0-0.2); Basophils % (auto) 0.9 % (0.0-2.0); Eosinophils # (auto) 0.1 10 ^3/uL (0-0.8); Eosinophils % (auto) 1.7 % (0.0-7.0); Hemoglobin 14.7 g/dL (12.2-16.2); Lymphocytes # (auto) 1.8 10 ^3/uL (0.4-5.4); Lymphocytes % (auto) 26.8 % (10.0-50.0); Mean Corpuscular Hemoglobin 30.9 pg (28.0-32.0); Mean Corpuscular Hgb Conc. 34.2 g/dL (32.0-36.0); Mean Corpuscular Volume 90.5 fL (80.0-100.0); Monocytes # (auto) 0.7 10 ^3/uL (0-1.3); Monocytes % (auto) 11.2 % (0.0-12.0); Neutrophils # (auto) 3.9 10 ^3/uL (1.6-8.6); Neutrophils % (auto) 59.4 % (37.0-80.0); Platelet Count (auto) 172 10^3/uL (140-450); Red Blood Cells 4.76 10^6/uL (4.0-5.20); Red Cell Distribution Width 13.3 % (11.8-14.3); White Blood Cell 6.6 10^3/uL (4.4-10.8)
[2025-02-16 06:58] LABS: Albumin 4.2 g/dL (3.2-4.8); Alkaline Phosphatase 112 U/L (46-116); Anion Gap 8 (5-15); Aspartate Aminotransferase 38 U/L (13-40); BUN/Creatinine Ratio 13.6 (10.0-20.0); Blood Urea Nitrogen 11 mg/dL (9-23); Calcium 9.4 mg/dL (8.7-10.4); Carbon Dioxide 28 mmol/L (20-31); Chloride 104 mmol/L (98-107); Potassium 4.1 mmol/L (3.5-5.1); Sodium 140 mmol/L (136-145); Total Protein 6.8 g/dL (5.7-8.2)
[2025-02-16 07:00] LABS: Bilirubin, Total 0.8 mg/dL (0.2-1.0)
[2025-02-16 07:03] LABS: Alanine Aminotransferase 43 U/L (7-40); Glucose 184 mg/dL (74-106)
[2025-02-16] MEDS: cefTRIAXone 1GM/50ML D5W 50 ML IV SCH (09:03)
--- NOTE | 2025-02-16 14:20 | DVHPN2 ---
Reviewed: Care Plan, H&P, Labs, Medications, Previous Orders, Radiology Changes from previous H/P or p: No Changes Eyes: No Pain, No Vision change, No Conjunctivae inflammation, No Eyelid inflammation, No Other, No Redness ENT: No Ear pain, No Ear discharge, No Nose pain, No Nose discharge, No Nose congestion, No Mouth pain, No Mouth swelling, No Throat pain, No Throat swelling, No Other Cardiovascular: No Chest Pain, No Palpitations, No Orthopnea, No Paroxysmal Noc. Dyspnea, No Edema, No Lt Headedness, No Other Respiratory: No Cough, No Dry, No Shortness of breath, No SOB with excertion, No Wheezing, No Hemoptysis, No Pleuritic Pain, No Sputum, No Other Gastrointestinal: No Nausea, No Vomiting, No Abdominal Pain, No Diarrhea, No Constipation, No Melena, No Hematochezia, No Other Genitourinary: No Dysuria, No Frequency, No Incontinence, No Hematuria, No Retention, No Other Musculoskeletal: other (Foot swelling/pain); No neck pain, No shoulder pain, No arm pain, No back pain, No hand pain, No leg pain, No foot pain Skin: No Rash; Lesions (Left 2nd toe); No Jaundice, No Bruising; Other (Left foot redness ) Objective Vitals Vital Signs Date Time Temp Pulse Resp B/P (MAP) Pulse Ox O2 Delivery O2 Flow Rate FiO2 02/16/25 08:43 98.4 83 18 146/77 (100) 97 98.4 02/15/25 09:37 Room Air Intake/Output Intake and Output 02/16/25 07:00 Intake Total 405 ml Balance 405 ml Intake Oral 5 ml IV Total 400 ml # Voids 1 Medications Current Medications Medications Dose Ordered Sig/Vini Route Start Time Stop Time Status Last Admin Dose Admin Ceftriaxone Sodium 50 ml @ 100 mls/hr DAILY@09 IV 02/16/25 09:00 02/16/25 09:03 100 MLS/HR Hydralazine HCl 10 mg Q6HP PRN IV 02/15/25 14:15 Atorvastatin Calcium 20 mg HS PO 02/15/25 22:00 02/15/25 22:24 20 MG Diagnostic Test (Pha) 1 strip ACHS 02/15/25 17:00 02/16/25 11:30 1 STRIP Insulin Human Regular ACHS SC 02/15/25 17:00 02/16/25 11:30 4 UNITS Dextrose 50 ml UD PRN IV 02/15/25 14:15 Sodium Chloride 10 ml Q8HR IV 02/15/25 22:00 02/16/25 06:32 10 ML Acetaminophen/ Hydrocodone Bitart 1 tab Q4HP PRN PO 02/15/25 14:15 Ondansetron HCl 4 mg Q4HP PRN IV 02/15/25 14:15 Docusate Sodium 100 mg BIDPRN PRN PO 02/15/25 14:15 Acetaminophen 650 mg Q6HP PRN PO 02/15/25 14:15 Nitroglycerin 0.4 mg Q5MINP PRN SL 02/15/25 15:45 Morphine Sulfate 2 mg Q30M PRN IV 02/15/25 15:45 Vancomycin HCl 0 ml @ 0 mls/hr UD IV 02/15/25 15:45 Vancomycin HCl 200 ml @ 200 mls/hr Q12H IV 02/15/25 17:00 02/16/25 04:36 200 MLS/HR Laboratory Results Laboratory Tests 02/16/25 05:58 Chemistry Test 02/16/25 05:58 Albumin 4.2 g/dL (3.2-4.8) Calcium Level 9.4 mg/dL (8.7-10.4) Total Protein 6.8 g/dL (5.7-8.2) LFT Test 02/16/25 05:58 Alanine Aminotransferase (ALT) 43 U/L (7-40) H Alkaline Phosphatase 112 U/L (46-116) Aspartate Amino Transferase (AST) 38 U/L (13-40) Total Bilirubin 0.8 mg/dL (0.2-1.0) Urinalysis Test 02/15/25 10:07 Urine Color Light-yellow (Yellow) Urine Clarity Turbid (Clear) H Urine pH 6.0 (5.0-9.0) Urine Specific [place] 1.021 (1.001-1.035) Urine Protein Negative (Negative) Urine Ketones Negative (Negative) Urine Blood Negative /uL (Negative) Urine Nitrite 2+ (Negative) H Urine Bilirubin Negative (Negative) Urine Urobilinogen Normal mg/dL (Negative) Urine Leukocyte Esterase 3+ /uL (Negative) Urine RBC 2 /hpf (0 - 4) Urine Microscopic WBC 64 /HPF (0-5) H Urine Squamous Epithelial Cells Few /hpf (<5) Urine Bacteria Mod /hpf (None Seen) H Urine Mucus Few (None Seen) Urine Glucose 4+ mg/dL (Normal) H Microbiology Microbiology Date/Time Source Procedure Growth Status 02/15/25 10:07 Voided Urine Urine Culture - Preliminary Resulted Labs and/or images reviewed: Labs reviewed by me, Image(s) reviewed by me Assessment/Plan Assessment/Plan Cellulitis of left foot vancomycin 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
[2025-02-17] VITALS (7 sets, daily range): BP systolic 96–136; BP diastolic 61–87; PULSE 65–101; RESP 15–20; TEMP 97.5–99; O2SAT 90–96
--- NOTE | 2025-02-17 04:57 | DVH ---
CLINICAL INDICATION: OSTEO COMPARISON: CT CT L FOOT WO CONTRAST on DOS: 12/24/23 TECHNIQUE: Multiplanar, multisequence MRI of the left foot was performed without intravenous contrast . Contrast: None. INTERPRETATION: Bones: No evidence of acute fracture. There is T1 hypointensity in the 2nd distal tuft with bone mar row edema, consistent with osteomyelitis. Joints: Midfoot arthrosis. Soft tissues: There is soft tissue ulceration in the 2nd toe with swelling, consistent with celluliti s. Dorsal foot swelling noted. Regional muscles are normal in bulk and signal characteristics. No hig h-grade tendon or ligament injury. IMPRESSION: 1. Osteomyelitis in the 2nd distal tuft of the left foot with adjacent ulceration and cellulitis in t he distal aspect of the 2nd toe. 2. Nonspecific dorsal soft tissue edema. 3. Midfoot osteoarthrosis.
--- NOTE | 2025-02-17 08:17 | DVHPN2 ---
Reviewed: Care Plan, H&P, Labs, Medications, Previous Orders, Radiology Changes from previous H/P or p: No Changes Eyes: No Pain, No Vision change, No Conjunctivae inflammation, No Eyelid inflammation, No Other, No Redness ENT: No Ear pain, No Ear discharge, No Nose pain, No Nose discharge, No Nose congestion, No Mouth pain, No Mouth swelling, No Throat pain, No Throat swelling, No Other Cardiovascular: No Chest Pain, No Palpitations, No Orthopnea, No Paroxysmal Noc. Dyspnea, No Edema, No Lt Headedness, No Other Respiratory: No Cough, No Dry, No Shortness of breath, No SOB with excertion, No Wheezing, No Hemoptysis, No Pleuritic Pain, No Sputum, No Other Gastrointestinal: No Nausea, No Vomiting, No Abdominal Pain, No Diarrhea, No Constipation, No Melena, No Hematochezia, No Other Genitourinary: No Dysuria, No Frequency, No Incontinence, No Hematuria, No Retention, No Other Musculoskeletal: other (Foot swelling/pain); No neck pain, No shoulder pain, No arm pain, No back pain, No hand pain, No leg pain, No foot pain Skin: No Rash; Lesions (Left 2nd toe); No Jaundice, No Bruising; Other (Left foot redness ) Objective Vitals Vital Signs Date Time Temp Pulse Resp B/P (MAP) Pulse Ox O2 Delivery O2 Flow Rate FiO2 02/17/25 05:00 97.5 83 19 122/77 (92) 90 97.5 02/16/25 20:00 Room Air* 0 21 Intake/Output Intake and Output 02/17/25 07:00 Intake Total 1190 ml Balance 1190 ml Intake Oral 940 ml IV Total 250 ml # Voids 8 # Bowel Movements 1 Medications Current Medications Medications Dose Ordered Sig/Vini Route Start Time Stop Time Status Last Admin Dose Admin Ceftriaxone Sodium 50 ml @ 100 mls/hr DAILY@09 IV 02/16/25 09:00 02/16/25 09:03 100 MLS/HR Hydralazine HCl 10 mg Q6HP PRN IV 02/15/25 14:15 Atorvastatin Calcium 20 mg HS PO 02/15/25 22:00 02/16/25 22:22 20 MG Diagnostic Test (Pha) 1 strip ACHS 02/15/25 17:00 02/17/25 06:06 1 STRIP Insulin Human Regular ACHS SC 02/15/25 17:00 02/17/25 06:04 6 UNITS Dextrose 50 ml UD PRN IV 02/15/25 14:15 Sodium Chloride 10 ml Q8HR IV 02/15/25 22:00 02/17/25 06:04 10 ML Acetaminophen/ Hydrocodone Bitart 1 tab Q4HP PRN PO 02/15/25 14:15 Ondansetron HCl 4 mg Q4HP PRN IV 02/15/25 14:15 Docusate Sodium 100 mg BIDPRN PRN PO 02/15/25 14:15 Acetaminophen 650 mg Q6HP PRN PO 02/15/25 14:15 Nitroglycerin 0.4 mg Q5MINP PRN SL 02/15/25 15:45 Morphine Sulfate 2 mg Q30M PRN IV 02/15/25 15:45 Vancomycin HCl 0 ml @ 0 mls/hr UD IV 02/15/25 15:45 Vancomycin HCl 200 ml @ 200 mls/hr Q12H IV 02/15/25 17:00 02/17/25 06:55 200 MLS/HR Laboratory Results Laboratory Tests 02/16/25 05:58 Urinalysis Test 02/15/25 10:07 Urine Color Light-yellow (Yellow) Urine Clarity Turbid (Clear) H Urine pH 6.0 (5.0-9.0) Urine Specific [place] 1.021 (1.001-1.035) Urine Protein Negative (Negative) Urine Ketones Negative (Negative) Urine Blood Negative /uL (Negative) Urine Nitrite 2+ (Negative) H Urine Bilirubin Negative (Negative) Urine Urobilinogen Normal mg/dL (Negative) Urine Leukocyte Esterase 3+ /uL (Negative) Urine RBC 2 /hpf (0 - 4) Urine Microscopic WBC 64 /HPF (0-5) H Urine Squamous Epithelial Cells Few /hpf (<5) Urine Bacteria Mod /hpf (None Seen) H Urine Mucus Few (None Seen) Urine Glucose 4+ mg/dL (Normal) H Microbiology Microbiology Date/Time Source Procedure Growth Status 02/15/25 10:07 Voided Urine Urine Culture - Preliminary Resulted Labs and/or images reviewed: Labs reviewed by me, Image(s) reviewed by me Assessment/Plan Assessment/Plan Cellulitis of left foot vancomycin Diabetic ulcer of left foot Consult for building performance specialist Acute osteomyelitis left 2nd toe UTI (lower urinary tract infection) urine cultures, Rocephin Uncontrolled diabetes mellitus: insulin sliding scale Diabetic neuropathy Peripheral arterial ultrasound pending Plan discussed with: Patient My Orders Orders - LADONNA WAHL MD Procedure Category Date Status Time Mri L Foot Wo Contrast MRI 02/16/25 Resulted 14:53 Wound Culture W/ Gs DAVID 02/16/25 In Process 17:22 Cleanse Wound With DURGA 02/16/25 In Process Wound Clean 17:00 * Dietary Consult CONS 02/16/25 Transmitted 17:25 Date of Service: February 17, 2025 Billing Provider: LADONNA WAHL MD Common Visit Codes: [id number] INP/OBS CARE(HIGH) LADONNA WAHL MD February 17, 2025 08:17
--- NOTE | 2025-02-17 09:22 | DVH ---
BILATERAL Lower Extremity Arterial Duplex Date: 02/17/2025 08:32 AM Clinical History: Nonhealing diabetic left foot ulcer Comparison: None Technique: Duplex Doppler evaluation including color Doppler and spectral/pulsed waveform analysis of the lower extremity arteries was performed. Finding: LEFT: Velocities and waveforms within normal limit IMPRESSION: There is no evidence for peripheral vascular insufficiency in the left lower extremity. No significant focal stenosis is identified.
--- NOTE | 2025-02-17 14:01 | DVHINCON2 ---
Date Seen: February 17, 2025 Reason for Consultation left foot wound History of Present Illness The patient is a 60-year-old female with past medical history of hyperlipidemia, UTIs, neuropathy, and diabetes mellitus who presented to [facility] ED for evaluation of left 2nd toe diabetic ulcer. Patient reports she was cutting her left toenail when she caught into the skin, afterwards she began experiencing. redness, swelling, and pain of the left foot. Patient was seen and evaluated in the ED, laboratory data shows WBC 9.5, platelets 175, sodium 140, potassium 4.3, BUN 11, creatinine 0.86, glucose 163, lactic acid 1.0, ESR 23, C- reactive protein 1.88, urinalysis positive for urinary tract infection. Left foot CT revealing soft tissue swelling, nonspecific but may reflect cellulitis, no fluid collection, no evidence of osteomyelitis. Patient was started on IV antibiotic regimen Rocephin, please see medication orders section in the compu ter. On my assessment, patient denied chest pain, no headache, no dizziness, no diaphoresis, no shortness of breaths, no nausea, no vomiting, no fever, no chills. Patient was admitted for further evaluation and medical management. Past Medical History See H&P Past Surgical History See H&P Family History: Cirrhosis of liver G8 MOTHER Diabetes mellitus G8 BROTHER G8 SISTER G8 SISTER G8 SISTER FH: lung disease G8 FATHER, FH: myocardial infarction G8 BROTHER, Allergies: Coded Allergies: NO KNOWN ALLERGIES (Unverified , 11/01/14) Home Meds Active Scripts Cephalexin Monohydrate (Cephalexin) 500 Mg Cap, 1 CAP PO QID for 5 Days, #20 CAP 0 Refills Prov:JAMES MARTINEZ NP 08/10/24 Clindamycin Hcl (CLEOCIN) 150 Mg Cap, 1 CAP PO QID, #40 CAP Prov:AMANDA GILLESPIE MD 12/24/23 Nitrofurantoin Monohydrate Mac (Macrobid) 100 Mg Cap, 100 MG PO BID for 7 Days, #14 CAP Prov:NICHOLAS ARCHIBALD MD 11/19/23 Doxycycline Hyclate (DOXYCYCLINE HYCLATE) 100 Mg Tab, 100 MG PO BID for 10 Days, #20 TAB Prov:NICHOLAS ARCHIBALD MD 11/19/23 Reported Medications Diclofenac Sodium (Topical) (Diclofenac Sodium) 1 % Gel, 2 TOP BID 11/16/23 Insulin Pen Needle (Bd Pen Needle/Elma/Ultra) 32 Gx4mm Mis, EA SC DAILY 11/16/23 Insulin Glargine (Lantus Solostar) 100 Unit/Ml Inj, 89 UNIT SC HS 11/16/23 Prednisolone Acetate (Ophth) (Pred Forte) 1 % Viri, 1 DROP LEFTEYE QID 11/16/23 Lidocaine HCl (Lidocaine Hydrochloride) 3 % Cre, TOP 11/16/23 Insulin Lispro (Insulin Lispro Kwikpen) 100 Unit/Ml Inj, 20 UNIT SC TID Inject per sliding scale. Max 20 units per dose. 11/16/23 Atorvastatin Calcium (ATORVASTATIN CALCIUM) 20 Mg Tab, 1 TAB PO DAILY 11/16/23 Empagliflozin (Jardiance) 25 Mg Tab, 1 TAB PO DAILY 11/16/23 Lancets (Fora Lancets) Lancets Mis 11/16/23 Glucose Blood (Fora Gtel Blood Glucose T) 1 Magnolia Magnolia 11/16/23 Ketorolac Tromethamine (Ophth) (Ketorolac Tromethamine) 0.4 % Brook, 1 DROP LEFTEYE QID 11/16/23 Metformin Hydrochloride (Metformin Hcl) 1,000 Mg Tab, 1 TAB PO BID 11/16/23 Insulin Syringe/Needle U-100 (Insulin Syringe/U-100/1ML) 1 Ml/31 G Mis, QID 11/16/23 Lidocaine (Lidocaine) 5 % Pad, 2 PAD TOP DAILY Apply 2 patches topically to the skin every day. May wear up to 12 hours on and 12 hours off. 11/16/23 Vital Signs Vital Signs Date Time Temp Pulse Resp B/P (MAP) Pulse Ox O2 Delivery O2 Flow Rate FiO2 02/17/25 12:58 98.8 75 18 135/73 (93) 94 98.8 02/16/25 20:00 Room Air* 0 21 Physical Exam Dermatological: Skin is dry with mild erythema and some maceration around the wound site No gross deformities noted Mild non-pitting edema present bilaterally Wound to the left 2nd toe with purulent drainage maceration blistering Vascular: Dorsalis pedis and posterior tibial pulses are 1+ bilaterally Capillary refill is under 2 seconds Skin temperature is warm bilaterally Neurologic: Protective sensation is absent on the plantar forefoot bilaterally Monofilament testing reveals decreased sensation in multiple plantar sites Musculoskeletal: Range of motion at the ankle and MTP joints is within normal limits. Strength is 5/5 in all tested muscle groups. Gait is antalgic due to offloading of the affected limb. Labs/Diagnostic Data Labs Test 02/17/25 05:55 02/17/25 05:42 02/16/25 05:58 02/15/25 10:19 Range/Units Vancomycin Level Trough 12.1 H 5-10 ug/mL POC Glucose 282 H 70-106 mg/dl White Blood Count 6.6 # 4.4-10.8 10^3/uL Red Blood Count 4.76 4.0-5.20 10^6/uL Hemoglobin 14.7 12.2-16.2 g/dL Hematocrit 43.0 36.0-46.0 % Mean Corpuscular Volume 90.5 80.0-100.0 fL Mean Corpuscular Hemoglobin 30.9 28.0-32.0 pg Mean Corpuscular Hemoglobin Concent 34.2 32.0-36.0 g/dL Red Cell Distribution Width 13.3 11.8-14.3 % Platelet Count 172 140-450 10^3/uL Mean Platelet Volume 9.1 6.9-10.8 fL Neutrophils (%) (Auto) 59.4 37.0-80.0 % Lymphocytes (%) (Auto) 26.8 10.0-50.0 % Monocytes (%) (Auto) 11.2 0.0-12.0 % Eosinophils (%) (Auto) 1.7 0.0-7.0 % Basophils (%) (Auto) 0.9 0.0-2.0 % Neutrophils # (Auto) 3.9 1.6-8.6 10 ^3/uL Lymphocytes # (Auto) 1.8 0.4-5.4 10 ^3/uL Monocytes # (Auto) 0.7 0-1.3 10 ^3/uL Eosinophils # (Auto) 0.1 0-0.8 10 ^3/uL Basophils # (Auto) 0.1 0-0.2 10 ^3/uL Nucleated Red Blood Cells 0.0 % Sodium Level 140 136-145 mmol/L Potassium Level 4.1 3.5-5.1 mmol/L Chloride Level 104 98-107 mmol/L Carbon Dioxide Level 28 20-31 mmol/L Anion Gap 8 5-15 Blood Urea Nitrogen 11 9-23 mg/dL Creatinine 0.81 0.550-1.02 mg/dL Glomerular Filtration Rate Calc 84 >90 mL/min BUN/Creatinine Ratio 13.6 10.0-20.0 Serum Glucose 184 H 74-106 mg/dL Calcium Level 9.4 8.7-10.4 mg/dL Total Bilirubin 0.8 0.2-1.0 mg/dL Aspartate Amino Transferase (AST) 38 13-40 U/L Alanine Aminotransferase (ALT) 43 H 7-40 U/L Alkaline Phosphatase 112 46-116 U/L Total Protein 6.8 5.7-8.2 g/dL Albumin 4.2 3.2-4.8 g/dL Erythrocyte Sedimentation Rate 23 H 0-20 mm/hr Lactic Acid Level 1.0 0.4-2.0 mmol/L C-Reactive Protein High Sensitivity 1.88 H <1.0 mg/dL Test 02/15/25 10:07 Range/Units Urine Color Light-yellow Yellow Urine Clarity Turbid H Clear Urine pH 6.0 5.0-9.0 Urine Specific [place] 1.021 1.001-1.035 Urine Protein Negative Negative Urine Ketones Negative Negative Urine Blood Negative Negative /uL Urine Nitrite 2+ H Negative Urine Bilirubin Negative Negative Urine Urobilinogen Normal Negative mg/dL Urine Leukocyte Esterase 3+ Negative /uL Urine RBC 2 0 - 4 /hpf Urine Microscopic WBC 64 H 0-5 /HPF Urine Squamous Epithelial Cells Few <5 /hpf Urine Bacteria Mod H None Seen /hpf Urine Mucus Few None Seen Urine Glucose 4+ H Normal mg/dL Microbiology Date/Time Source Procedure Growth Status 02/16/25 15:10 Toe Left (Second) Gram Stain Pending Resulted 02/16/25 15:10 Toe Left (Second) Wound Culture - Preliminary Resulted 02/15/25 10:07 Voided Urine Urine Culture - Final Complete Problems(with codes): (1) Positional vertigo (2) Medication refill (3) Plantar fasciitis of right foot (4) UTI (lower urinary tract infection) (5) PIC line (peripherally inserted central catheter) removal (6) S91.331A (7) Cellulitis of foot (8) Infected puncture wound of plantar aspect of foot (9) Sprain of left wrist (10) Allergic reaction caused by a drug (11) Diabetic ulcer of left fifth toe (12) Bullae (13) Cellulitis of left foot (14) UTI (lower urinary tract infection) (15) Uncontrolled diabetes mellitus (16) Diabetic ulcer of left foot Plan/Recommendation ASSESSMENT: Patient is a 60-year-old female seen on the floor for worsening left 2nd toe ulceration PLAN: - The patients chart was reviewed, clinical findings were discussed with the patient, the etiologies of the conditions were discussed in detail, and a treatment plan was agreed to at this time, with both oral and written instructions provided. - reviewed advanced imaging - discussed with the patient that recommendation would be distal 2nd toe amputation at least - continue IV antibiotics - patient does not want amputation at this point - discussed case with Dr. Ag who is her data typist - patient does have adequate blood flow to heal amputation if needed - continue antibiotics until decision is made on surgery All questions were answered and concerns addressed to the patient's satisfaction. The patient was given the phone number to the clinic and was told how to make contact with the clinic should any concerns or questions arise. Patient understands that if any questions or concerns arise prior to the next appointment, we should be contacted immediately. FOLLOW-UP: Continue to follow while inpatient Plan discussed with: Patient Date of Service: February 17, 2025 Billing Provider: RICHIE CHAPIN DPM Common Visit Codes: CONSULT ONLY Consultation Codes: [id number] CONSULT <80MIN RICHIE CHAPIN DPM February 17, 2025 14:01
[2025-02-17 15:09] LABS: Basophils # (auto) 0.1 10 ^3/uL (0-0.2); Basophils % (auto) 0.7 % (0.0-2.0); Eosinophils # (auto) 0.1 10 ^3/uL (0-0.8); Eosinophils % (auto) 1.5 % (0.0-7.0); Hematocrit 46.6 % (36.0-46.0); Hemoglobin 15.8 g/dL (12.2-16.2); Lymphocytes % (auto) 24.1 % (10.0-50.0); Mean Corpuscular Hemoglobin 30.9 pg (28.0-32.0); Mean Corpuscular Volume 90.9 fL (80.0-100.0); Monocytes # (auto) 0.9 10 ^3/uL (0-1.3); Monocytes % (auto) 10.6 % (0.0-12.0); Neutrophils # (auto) 5.1 10 ^3/uL (1.6-8.6); Neutrophils % (auto) 63.1 % (37.0-80.0); Nucleated Red Blood Cells % 0.1 %; Platelet Count (auto) 191 10^3/uL (140-450); Red Blood Cells 5.13 10^6/uL (4.0-5.20); Red Cell Distribution Width 13.5 % (11.8-14.3); White Blood Cell 8.1 10^3/uL (4.4-10.8)
[2025-02-18] VITALS (7 sets, daily range): BP systolic 110–146; BP diastolic 71–92; PULSE 80–97; RESP 15–20; TEMP 97.6–99.1; O2SAT 91–97
[2025-02-18 06:44] LABS: Basophils # (auto) 0.1 10 ^3/uL (0-0.2); Eosinophils # (auto) 0.1 10 ^3/uL (0-0.8); Eosinophils % (auto) 1.7 % (0.0-7.0); Hematocrit 44.8 % (36.0-46.0); Hemoglobin 15.3 g/dL (12.2-16.2); Lymphocytes % (auto) 26.5 % (10.0-50.0); Mean Corpuscular Hemoglobin 30.9 pg (28.0-32.0); Mean Corpuscular Hgb Conc. 34.2 g/dL (32.0-36.0); Mean Corpuscular Volume 90.4 fL (80.0-100.0); Monocytes # (auto) 0.9 10 ^3/uL (0-1.3); Monocytes % (auto) 11.3 % (0.0-12.0); Neutrophils # (auto) 4.5 10 ^3/uL (1.6-8.6); Neutrophils % (auto) 59.5 % (37.0-80.0); Nucleated Red Blood Cells % 0.2 %; Platelet Count (auto) 186 10^3/uL (140-450); Red Blood Cells 4.95 10^6/uL (4.0-5.20); Red Cell Distribution Width 13.2 % (11.8-14.3); White Blood Cell 7.6 10^3/uL (4.4-10.8)
--- NOTE | 2025-02-18 09:24 | DVHPN2 ---
Reviewed: Care Plan, H&P, Labs, Medications, Previous Orders, Radiology Changes from previous H/P or p: No Changes Eyes: No Pain, No Vision change, No Conjunctivae inflammation, No Eyelid inflammation, No Other, No Redness ENT: No Ear pain, No Ear discharge, No Nose pain, No Nose discharge, No Nose congestion, No Mouth pain, No Mouth swelling, No Throat pain, No Throat swelling, No Other Cardiovascular: No Chest Pain, No Palpitations, No Orthopnea, No Paroxysmal Noc. Dyspnea, No Edema, No Lt Headedness, No Other Respiratory: No Cough, No Dry, No Shortness of breath, No SOB with excertion, No Wheezing, No Hemoptysis, No Pleuritic Pain, No Sputum, No Other Gastrointestinal: No Nausea, No Vomiting, No Abdominal Pain, No Diarrhea, No Constipation, No Melena, No Hematochezia, No Other Genitourinary: No Dysuria, No Frequency, No Incontinence, No Hematuria, No Retention, No Other Musculoskeletal: other (Foot swelling/pain); No neck pain, No shoulder pain, No arm pain, No back pain, No hand pain, No leg pain, No foot pain Skin: No Rash; Lesions (Left 2nd toe); No Jaundice, No Bruising; Other (Left foot redness ) Objective Vitals Vital Signs Date Time Temp Pulse Resp B/P (MAP) Pulse Ox O2 Delivery O2 Flow Rate FiO2 02/18/25 05:00 97.9 80 15 142/72 (95) 93 97.9 02/17/25 20:00 Room Air* 0 21 Intake/Output Intake and Output 02/18/25 07:00 Intake Total 2927 ml Balance 2927 ml Intake Oral 1720 ml IV Total 1207 ml # Voids 8 # Bowel Movements 1 Medications Current Medications Medications Dose Ordered Sig/Vini Route Start Time Stop Time Status Last Admin Dose Admin Ceftriaxone Sodium 50 ml @ 100 mls/hr DAILY@09 IV 02/16/25 09:00 02/18/25 08:48 100 MLS/HR Hydralazine HCl 10 mg Q6HP PRN IV 02/15/25 14:15 Atorvastatin Calcium 20 mg HS PO 02/15/25 22:00 02/17/25 22:04 20 MG Diagnostic Test (Pha) 1 strip ACHS 02/15/25 17:00 02/18/25 06:37 1 STRIP Insulin Human Regular ACHS SC 02/15/25 17:00 02/18/25 06:37 6 UNITS Dextrose 50 ml UD PRN IV 02/15/25 14:15 Sodium Chloride 10 ml Q8HR IV 02/15/25 22:00 02/18/25 06:14 10 ML Acetaminophen/ Hydrocodone Bitart 1 tab Q4HP PRN PO 02/15/25 14:15 Ondansetron HCl 4 mg Q4HP PRN IV 02/15/25 14:15 Docusate Sodium 100 mg BIDPRN PRN PO 02/15/25 14:15 Acetaminophen 650 mg Q6HP PRN PO 02/15/25 14:15 Nitroglycerin 0.4 mg Q5MINP PRN SL 02/15/25 15:45 Morphine Sulfate 2 mg Q30M PRN IV 02/15/25 15:45 Vancomycin HCl 0 ml @ 0 mls/hr UD IV 02/15/25 15:45 Vancomycin HCl 200 ml @ 200 mls/hr Q12H IV 02/15/25 17:00 02/18/25 05:23 200 MLS/HR Laboratory Results Laboratory Tests 02/16/25 05:58 02/18/25 05:33 Urinalysis Test 02/15/25 10:07 Urine Color Light-yellow (Yellow) Urine Clarity Turbid (Clear) H Urine pH 6.0 (5.0-9.0) Urine Specific [place] 1.021 (1.001-1.035) Urine Protein Negative (Negative) Urine Ketones Negative (Negative) Urine Blood Negative /uL (Negative) Urine Nitrite 2+ (Negative) H Urine Bilirubin Negative (Negative) Urine Urobilinogen Normal mg/dL (Negative) Urine Leukocyte Esterase 3+ /uL (Negative) Urine RBC 2 /hpf (0 - 4) Urine Microscopic WBC 64 /HPF (0-5) H Urine Squamous Epithelial Cells Few /hpf (<5) Urine Bacteria Mod /hpf (None Seen) H Urine Mucus Few (None Seen) Urine Glucose 4+ mg/dL (Normal) H Microbiology Microbiology Date/Time Source Procedure Growth Status 02/16/25 15:10 Toe Left (Second) Gram Stain Pending Resulted 02/16/25 15:10 Toe Left (Second) Wound Culture - Preliminary Resulted 02/15/25 10:07 Voided Urine Urine Culture - Final Complete Labs and/or images reviewed: Labs reviewed by me, Image(s) reviewed by me Assessment/Plan Assessment/Plan Cellulitis of left foot vancomycin Diabetic ulcer of left foot Consult for psychologist developmental appreciated, Acute osteomyelitis left 2nd toe, Dr. Bass advised left 2nd toe amputation, patient refused UTI (lower urinary tract infection) urine cultures, Rocephin Uncontrolled diabetes mellitus: insulin sliding scale Diabetic neuropathy Peripheral arterial disease ruled out PICC line Ordered Plan discussed with: Patient Date of Service: February 18, 2025 Billing Provider: LADONNA WAHL MD Common Visit Codes: [id number] INP/OBS CARE(HIGH) LADONNA WAHL MD February 18, 2025 09:24
[2025-02-18 10:15] LABS: INR 0.97 (0.9-1.15); Partial Thromboplastin Time 26.7 SEC (24.5-34.5); Prothrombin Time 10.3 sec (9.3-11.8)
[2025-02-18] MEDS: InsuLIN REG 1unit/0.01ml Soln (100units/ml) SC SCH ×2 (11:25→22:37)
[2025-02-18] MEDS ORDERED: LIDOCAINE 1% (LOCAL ANESTH.) PF 5ml SDV ID ONE (15:30)
[2025-02-18] MEDS: SODIUM CHLOR 0.9% PF (SALINE LOCK) 10ML VIAL/SYR IV SCH (22:37)
[2025-02-19] VITALS (8 sets, daily range): BP systolic 121–136; BP diastolic 61–95; PULSE 80–95; RESP 16–18; TEMP 97.7–98.9; O2SAT 92–99
[2025-02-19] MEDS: VANCOMYCIN 1.25GM/250ML 250 ML IV SCH (04:47)
[2025-02-19 06:19] LABS: Basophils # (auto) 0.1 10 ^3/uL (0-0.2); Basophils % (auto) 0.7 % (0.0-2.0); Eosinophils # (auto) 0.1 10 ^3/uL (0-0.8); Eosinophils % (auto) 1.3 % (0.0-7.0); Hematocrit 46.8 % (36.0-46.0); Hemoglobin 15.9 g/dL (12.2-16.2); Lymphocytes # (auto) 2.3 10 ^3/uL (0.4-5.4); Lymphocytes % (auto) 25.8 % (10.0-50.0); Mean Corpuscular Hemoglobin 31.3 pg (28.0-32.0); Monocytes % (auto) 11.6 % (0.0-12.0); Neutrophils # (auto) 5.4 10 ^3/uL (1.6-8.6); Neutrophils % (auto) 60.6 % (37.0-80.0); Nucleated Red Blood Cells % 0.2 %; Platelet Count (auto) 204 10^3/uL (140-450); Red Blood Cells 5.09 10^6/uL (4.0-5.20); Red Cell Distribution Width 13.5 % (11.8-14.3)
--- NOTE | 2025-02-19 09:37 | DVHPN2 ---
Reviewed: Care Plan, H&P, Labs, Medications, Previous Orders, Radiology Changes from previous H/P or p: No Changes Eyes: No Pain, No Vision change, No Conjunctivae inflammation, No Eyelid inflammation, No Other, No Redness ENT: No Ear pain, No Ear discharge, No Nose pain, No Nose discharge, No Nose congestion, No Mouth pain, No Mouth swelling, No Throat pain, No Throat swelling, No Other Cardiovascular: No Chest Pain, No Palpitations, No Orthopnea, No Paroxysmal Noc. Dyspnea, No Edema, No Lt Headedness, No Other Respiratory: No Cough, No Dry, No Shortness of breath, No SOB with excertion, No Wheezing, No Hemoptysis, No Pleuritic Pain, No Sputum, No Other Gastrointestinal: No Nausea, No Vomiting, No Abdominal Pain, No Diarrhea, No Constipation, No Melena, No Hematochezia, No Other Genitourinary: No Dysuria, No Frequency, No Incontinence, No Hematuria, No Retention, No Other Musculoskeletal: other (Foot swelling/pain); No neck pain, No shoulder pain, No arm pain, No back pain, No hand pain, No leg pain, No foot pain Skin: No Rash; Lesions (Left 2nd toe); No Jaundice, No Bruising; Other (Left foot redness ) Objective Vitals Vital Signs Date Time Temp Pulse Resp B/P (MAP) Pulse Ox O2 Delivery O2 Flow Rate FiO2 02/19/25 09:06 98.3 85 16 136/78 (97) 99 98.3 02/18/25 20:00 Room Air* 0 21 Intake/Output Intake and Output 02/19/25 07:00 Intake Total 3880 ml Balance 3880 ml Intake Oral 3380 ml IV Total 500 ml # Voids 5 # Bowel Movements 1 Medications Current Medications Medications Dose Ordered Sig/Vini Route Start Time Stop Time Status Last Admin Dose Admin Ceftriaxone Sodium 50 ml @ 100 mls/hr DAILY@09 IV 02/16/25 09:00 02/18/25 08:48 100 MLS/HR Hydralazine HCl 10 mg Q6HP PRN IV 02/15/25 14:15 Atorvastatin Calcium 20 mg HS PO 02/15/25 22:00 02/18/25 22:32 20 MG Diagnostic Test (Pha) 1 strip ACHS 02/15/25 17:00 02/19/25 06:38 1 STRIP Dextrose 50 ml UD PRN IV 02/15/25 14:15 Sodium Chloride 10 ml Q8HR IV 02/15/25 22:00 02/19/25 06:01 10 ML Acetaminophen/ Hydrocodone Bitart 1 tab Q4HP PRN PO 02/15/25 14:15 Ondansetron HCl 4 mg Q4HP PRN IV 02/15/25 14:15 Docusate Sodium 100 mg BIDPRN PRN PO 02/15/25 14:15 Acetaminophen 650 mg Q6HP PRN PO 02/15/25 14:15 Nitroglycerin 0.4 mg Q5MINP PRN SL 02/15/25 15:45 Morphine Sulfate 2 mg Q30M PRN IV 02/15/25 15:45 Vancomycin HCl 0 ml @ 0 mls/hr UD IV 02/15/25 15:45 Insulin Human Regular AC SC 02/18/25 11:30 02/19/25 06:39 12 UNITS Insulin Human Regular HS SC 02/18/25 22:00 02/18/25 22:37 8 UNITS Sodium Chloride 10 ml QSHIFT@10,22 IV 02/18/25 22:00 02/18/25 22:37 10 ML Vancomycin HCl 250 ml @ 200 mls/hr Q24H IV 02/19/25 05:00 02/19/25 04:47 200 MLS/HR Laboratory Results Laboratory Tests 02/16/25 05:58 02/19/25 05:32 Urinalysis Test 02/15/25 10:07 Urine Color Light-yellow (Yellow) Urine Clarity Turbid (Clear) H Urine pH 6.0 (5.0-9.0) Urine Specific [place] 1.021 (1.001-1.035) Urine Protein Negative (Negative) Urine Ketones Negative (Negative) Urine Blood Negative /uL (Negative) Urine Nitrite 2+ (Negative) H Urine Bilirubin Negative (Negative) Urine Urobilinogen Normal mg/dL (Negative) Urine Leukocyte Esterase 3+ /uL (Negative) Urine RBC 2 /hpf (0 - 4) Urine Microscopic WBC 64 /HPF (0-5) H Urine Squamous Epithelial Cells Few /hpf (<5) Urine Bacteria Mod /hpf (None Seen) H Urine Mucus Few (None Seen) Urine Glucose 4+ mg/dL (Normal) H Microbiology Microbiology Date/Time Source Procedure Growth Status 02/16/25 15:10 Toe Left (Second) Gram Stain Pending Resulted 02/16/25 15:10 Toe Left (Second) Wound Culture - Preliminary Resulted 02/15/25 10:07 Voided Urine Urine Culture - Final Complete Labs and/or images reviewed: Labs reviewed by me, Image(s) reviewed by me Assessment/Plan Assessment/Plan Cellulitis of left foot vancomycin Diabetic ulcer of left foot Consult for laborer general appreciated, Acute osteomyelitis left 2nd toe, Dr. Bass advised left 2nd toe amputation, patient refused UTI (lower urinary tract infection) urine cultures contaminated, continue Rocephin Uncontrolled diabetes mellitus: insulin sliding scale Diabetic neuropathy Peripheral arterial disease ruled out PICC line in place Plan discussed with: Patient My Orders Orders - LADONNA WAHL MD Procedure Category Date Status Time Insulin R (Human) PHA 02/18/25 In Process (Insulin R) 11:30 Insulin R (Human) PHA 02/18/25 In Process (Insulin R) 22:00 Nursing Protocol Picc DURGA 02/18/25 In Process 15:16 Change Dressing Prn DURGA 02/18/25 In Process 15:16 PICC BD 02/18/25 Transmitted 15:16 Sodium Chloride Lock PHA 02/18/25 In Process (Saline Lock Ns) 22:00 Do Not Use Picc For [facility] 02/18/25 In Process Blood Cult 15:16 May Draw Blood From [facility] 02/18/25 In Process Picc 15:16 Ok To Use Picc DURGA 02/18/25 In Process 15:16 Change Picc Dressing [facility] 02/18/25 In Process Q7 Days 15:16 Date of Service: Feb 19, 2025 Billing Provider: LADONNA WAHL MD Common Visit Codes: [id number] INP/OBS CARE(HIGH) LADONNA WAHL MD Feb 19, 2025 09:37
[2025-02-20] VITALS (8 sets, daily range): BP systolic 121–144; BP diastolic 66–105; PULSE 78–95; RESP 16–18; TEMP 97.6–98.9; O2SAT 94–96
--- NOTE | 2025-02-20 07:25 | DVHINCON2 ---
Date of service: Feb 20, [address] Bass, DPM Reason for Consultation Osteomyelitis 2nd left toe Ulceration 2nd left toe. History of Present Illness The patient is a 60 year-old- female with history of DM II, Neuropathy and high lipids was seen at bedside resting comfortably. The patient apparently was cutting her nails and cut into the skin of the 2nd left toe and sustained an ulceration which developed into necrosis and gangrene and the presence of osteomyelitis. The patient denies nausea, vomiting. No diaphoresis, no SOB. The patient is currently on IV antibiotics. Past Medical History Diabetes II Neuropathy Hyperlipidemia. Past Surgical History unremarkable Family History: Cirrhosis of liver G8 MOTHER Diabetes mellitus G8 BROTHER G8 SISTER G8 SISTER G8 SISTER FH: lung disease G8 FATHER, FH: myocardial infarction G8 BROTHER, Family History Reviewed and is non contributory to management of this case. Social History Denies alcohol, tobacco and illicit drug use. Allergies: Coded Allergies: NO KNOWN ALLERGIES (Unverified , 11/01/14) Home Meds Active Scripts Cephalexin Monohydrate (Cephalexin) 500 Mg Cap, 1 CAP PO QID for 5 Days, #20 CAP 0 Refills Prov:JAMES MARTINEZ NP 08/10/24 Clindamycin Hcl (CLEOCIN) 150 Mg Cap, 1 CAP PO QID, #40 CAP Prov:AMANDA GILLESPIE MD 12/24/23 Nitrofurantoin Monohydrate Mac (Macrobid) 100 Mg Cap, 100 MG PO BID for 7 Days, #14 CAP Prov:NICHOLAS ARCHIBALD MD 11/19/23 Doxycycline Hyclate (DOXYCYCLINE HYCLATE) 100 Mg Tab, 100 MG PO BID for 10 Days, #20 TAB Prov:NICHOLAS ARCHIBALD MD 11/19/23 Reported Medications Diclofenac Sodium (Topical) (Diclofenac Sodium) 1 % Gel, 2 TOP BID 11/16/23 Insulin Pen Needle (Bd Pen Needle/Elma/Ultra) 32 Gx4mm Mis, EA SC DAILY 11/16/23 Insulin Glargine (Lantus Solostar) 100 Unit/Ml Inj, 89 UNIT SC HS 11/16/23 Prednisolone Acetate (Ophth) (Pred Forte) 1 % Viri, 1 DROP LEFTEYE QID 11/16/23 Lidocaine HCl (Lidocaine Hydrochloride) 3 % Cre, TOP 11/16/23 Insulin Lispro (Insulin Lispro Kwikpen) 100 Unit/Ml Inj, 20 UNIT SC TID Inject per sliding scale. Max 20 units per dose. 11/16/23 Atorvastatin Calcium (ATORVASTATIN CALCIUM) 20 Mg Tab, 1 TAB PO DAILY 11/16/23 Empagliflozin (Jardiance) 25 Mg Tab, 1 TAB PO DAILY 11/16/23 Lancets (Fora Lancets) Lancets Mis 11/16/23 Glucose Blood (Fora Gtel Blood Glucose T) 1 Magnolia Magnolia 11/16/23 Ketorolac Tromethamine (Ophth) (Ketorolac Tromethamine) 0.4 % Brook, 1 DROP LEFTEYE QID 11/16/23 Metformin Hydrochloride (Metformin Hcl) 1,000 Mg Tab, 1 TAB PO BID 11/16/23 Insulin Syringe/Needle U-100 (Insulin Syringe/U-100/1ML) 1 Ml/31 G Mis, QID 11/16/23 Lidocaine (Lidocaine) 5 % Pad, 2 PAD TOP DAILY Apply 2 patches topically to the skin every day. May wear up to 12 hours on and 12 hours off. 11/16/23 Review of Systems ROS is currently negative otherwise addressed in the HPI. Vital Signs Vital Signs Date Time Temp Pulse Resp B/P (MAP) Pulse Ox O2 Delivery O2 Flow Rate FiO2 02/20/25 05:00 97.8 78 17 128/66 (86) 96 97.8 02/19/25 20:00 Room Air* 0 21 Physical Exam Dermatological: erythema is noted to the 2nd left toe with necrosis engulfing the distal, middle and partially the proximal phalanx. No gross deformities noted +1 edema is noted to the left dorsum foot. Wound to the left 2nd toe with purulent drainage maceration blistering is noted. Vascular Status: Dorsalis pedis and posterior tibial pulses are +2/4 bilaterally. Capillary refill is under 2 seconds Skin temperature is warm bilaterally. Neurologic: Protective sensation is absent on the plantar forefoot bilaterally. Monofilament testing reveals decreased sensation in multiple plantar sites. Musculoskeletal: Range of motion at the ankle and MTP joints is within normal limits. Strength is 5/5 in all tested muscle groups. Gait is antalgic due to offloading of the affected limb. Labs/Diagnostic Data Labs Test 02/20/25 06:37 02/19/25 05:32 02/18/25 16:13 02/18/25 05:50 Range/Units POC Glucose 206 H 70-106 mg/dl White Blood Count 9.0 4.4-10.8 10^3/uL Red Blood Count 5.09 4.0-5.20 10^6/uL Hemoglobin 15.9 12.2-16.2 g/dL Hematocrit 46.8 H 36.0-46.0 % Mean Corpuscular Volume 92.0 80.0-100.0 fL Mean Corpuscular Hemoglobin 31.3 28.0-32.0 pg Mean Corpuscular Hemoglobin Concent 34.0 32.0-36.0 g/dL Red Cell Distribution Width 13.5 11.8-14.3 % Platelet Count 204 140-450 10^3/uL Mean Platelet Volume 9.2 6.9-10.8 fL Neutrophils (%) (Auto) 60.6 37.0-80.0 % Lymphocytes (%) (Auto) 25.8 10.0-50.0 % Monocytes (%) (Auto) 11.6 0.0-12.0 % Eosinophils (%) (Auto) 1.3 0.0-7.0 % Basophils (%) (Auto) 0.7 0.0-2.0 % Neutrophils # (Auto) 5.4 1.6-8.6 10 ^3/uL Lymphocytes # (Auto) 2.3 0.4-5.4 10 ^3/uL Monocytes # (Auto) 1.0 0-1.3 10 ^3/uL Eosinophils # (Auto) 0.1 0-0.8 10 ^3/uL Basophils # (Auto) 0.1 0-0.2 10 ^3/uL Nucleated Red Blood Cells 0.2 % Creatinine 0.96 0.550-1.02 mg/dL Glomerular Filtration Rate Calc 69 >90 mL/min Vancomycin Level Trough 19.2 H 5-10 ug/mL Prothrombin Time 10.3 9.3-11.8 sec Prothrombin Time INR 0.97 0.9-1.15 Activated Partial Thromboplast Time 26.7 24.5-34.5 SEC Test 02/16/25 05:58 02/15/25 10:19 02/15/25 10:07 Range/Units Sodium Level 140 136-145 mmol/L Potassium Level 4.1 3.5-5.1 mmol/L Chloride Level 104 98-107 mmol/L Carbon Dioxide Level 28 20-31 mmol/L Anion Gap 8 5-15 Blood Urea Nitrogen 11 9-23 mg/dL BUN/Creatinine Ratio 13.6 10.0-20.0 Serum Glucose 184 H 74-106 mg/dL Calcium Level 9.4 8.7-10.4 mg/dL Total Bilirubin 0.8 0.2-1.0 mg/dL Aspartate Amino Transferase (AST) 38 13-40 U/L Alanine Aminotransferase (ALT) 43 H 7-40 U/L Alkaline Phosphatase 112 46-116 U/L Total Protein 6.8 5.7-8.2 g/dL Albumin 4.2 3.2-4.8 g/dL Erythrocyte Sedimentation Rate 23 H 0-20 mm/hr Lactic Acid Level 1.0 0.4-2.0 mmol/L C-Reactive Protein High Sensitivity 1.88 H <1.0 mg/dL Urine Color Light-yellow Yellow Urine Clarity Turbid H Clear Urine pH 6.0 5.0-9.0 Urine Specific [place] 1.021 1.001-1.035 Urine Protein Negative Negative Urine Ketones Negative Negative Urine Blood Negative Negative /uL Urine Nitrite 2+ H Negative Urine Bilirubin Negative Negative Urine Urobilinogen Normal Negative mg/dL Urine Leukocyte Esterase 3+ Negative /uL Urine RBC 2 0 - 4 /hpf Urine Microscopic WBC 64 H 0-5 /HPF Urine Squamous Epithelial Cells Few <5 /hpf Urine Bacteria Mod H None Seen /hpf Urine Mucus Few None Seen Urine Glucose 4+ H Normal mg/dL Microbiology Date/Time Source Procedure Growth Status 02/16/25 15:10 Toe Left (Second) Gram Stain - Final Resulted 02/16/25 15:10 Toe Left (Second) Wound Culture - Preliminary Resulted 02/15/25 10:07 Voided Urine Urine Culture - Final Complete Assessment Primary Diagnosis: Osteomyelitis 2nd left toe. Necrosis 2nd left toe. Ulceration 2nd left toe. Secondary Diagnosis: DM II Hyperlipidemia Neuropathy H/O UTIs Plan/Recommendation -At this point the patient refused surgery. I discussed in details the risks of not having surgery and the possibility of midfoot, below and or above the knee amputation in the future. The patient is advised to have 2nd left toe amputation due to significant necrosis and presence of osteomyelitis. The patient fully understands the risks and continues to refuse surgery at this juncture. She wants to wait and see if the antibiotics can help prior to having digital amputation. -The patient to continue with IV antibiotics via PICC line for a regimen of 4-6 weeks. - Advised the patient to follow up with me at the office upon her discharge. -All questions and concerns were answered tot he patient's satisfaction. Thank you for your consultation. Plan discussed with: Patient IGNACIO GAN DPM Feb 20, 2025 07:25
[2025-02-20] MEDS: levoFLOXacin 500MG 100 ML IV ONE (10:45)
--- NOTE | 2025-02-20 10:46 | DVHPN2 ---
Reviewed: Care Plan, H&P, Labs, Medications, Previous Orders, Radiology Changes from previous H/P or p: No Changes Eyes: No Pain, No Vision change, No Conjunctivae inflammation, No Eyelid inflammation, No Other, No Redness ENT: No Ear pain, No Ear discharge, No Nose pain, No Nose discharge, No Nose congestion, No Mouth pain, No Mouth swelling, No Throat pain, No Throat swelling, No Other Cardiovascular: No Chest Pain, No Palpitations, No Orthopnea, No Paroxysmal Noc. Dyspnea, No Edema, No Lt Headedness, No Other Respiratory: No Cough, No Dry, No Shortness of breath, No SOB with excertion, No Wheezing, No Hemoptysis, No Pleuritic Pain, No Sputum, No Other Gastrointestinal: No Nausea, No Vomiting, No Abdominal Pain, No Diarrhea, No Constipation, No Melena, No Hematochezia, No Other Genitourinary: No Dysuria, No Frequency, No Incontinence, No Hematuria, No Retention, No Other Musculoskeletal: other (Foot swelling/pain); No neck pain, No shoulder pain, No arm pain, No back pain, No hand pain, No leg pain, No foot pain Skin: No Rash; Lesions (Left 2nd toe); No Jaundice, No Bruising; Other (Left foot redness ) Objective Vitals Vital Signs Date Time Temp Pulse Resp B/P (MAP) Pulse Ox O2 Delivery O2 Flow Rate FiO2 02/20/25 08:30 98.5 87 16 144/81 (102) 95 98.5 02/19/25 20:00 Room Air* 0 21 Intake/Output Intake and Output 02/20/25 07:00 Intake Total 1500 ml Balance 1500 ml Intake Oral 1200 ml IV Total 300 ml # Voids 5 Medications Current Medications Medications Dose Ordered Sig/Vini Route Start Time Stop Time Status Last Admin Dose Admin Ceftriaxone Sodium 50 ml @ 100 mls/hr DAILY@09 IV 02/16/25 09:00 02/20/25 09:05 100 MLS/HR Hydralazine HCl 10 mg Q6HP PRN IV 02/15/25 14:15 Atorvastatin Calcium 20 mg HS PO 02/15/25 22:00 02/19/25 23:31 20 MG Diagnostic Test (Pha) 1 strip ACHS 02/15/25 17:00 02/20/25 06:38 1 STRIP Dextrose 50 ml UD PRN IV 02/15/25 14:15 Sodium Chloride 10 ml Q8HR IV 02/15/25 22:00 02/20/25 06:38 10 ML Acetaminophen/ Hydrocodone Bitart 1 tab Q4HP PRN PO 02/15/25 14:15 Ondansetron HCl 4 mg Q4HP PRN IV 02/15/25 14:15 Docusate Sodium 100 mg BIDPRN PRN PO 02/15/25 14:15 Acetaminophen 650 mg Q6HP PRN PO 02/15/25 14:15 Nitroglycerin 0.4 mg Q5MINP PRN SL 02/15/25 15:45 Morphine Sulfate 2 mg Q30M PRN IV 02/15/25 15:45 Vancomycin HCl 0 ml @ 0 mls/hr UD IV 02/15/25 15:45 Insulin Human Regular AC SC 02/18/25 11:30 02/20/25 06:44 8 UNITS Insulin Human Regular HS SC 02/18/25 22:00 02/19/25 23:37 8 UNITS Sodium Chloride 10 ml QSHIFT@10,22 IV 02/18/25 22:00 02/19/25 23:26 10 ML Vancomycin HCl 250 ml @ 200 mls/hr Q24H IV 02/19/25 05:00 02/20/25 05:18 200 MLS/HR Laboratory Results Laboratory Tests 02/16/25 05:58 02/19/25 05:32 Urinalysis Test 02/15/25 10:07 Urine Color Light-yellow (Yellow) Urine Clarity Turbid (Clear) H Urine pH 6.0 (5.0-9.0) Urine Specific [place] 1.021 (1.001-1.035) Urine Protein Negative (Negative) Urine Ketones Negative (Negative) Urine Blood Negative /uL (Negative) Urine Nitrite 2+ (Negative) H Urine Bilirubin Negative (Negative) Urine Urobilinogen Normal mg/dL (Negative) Urine Leukocyte Esterase 3+ /uL (Negative) Urine RBC 2 /hpf (0 - 4) Urine Microscopic WBC 64 /HPF (0-5) H Urine Squamous Epithelial Cells Few /hpf (<5) Urine Bacteria Mod /hpf (None Seen) H Urine Mucus Few (None Seen) Urine Glucose 4+ mg/dL (Normal) H Microbiology Microbiology Date/Time Source Procedure Growth Status 02/16/25 15:10 Toe Left (Second) Gram Stain - Final Resulted 02/16/25 15:10 Wound Culture - Preliminary Staphylococcus aureus Enterococcus faecalis Resulted 02/15/25 10:07 Voided Urine Urine Culture - Final Complete Labs and/or images reviewed: Labs reviewed by me, Image(s) reviewed by me Assessment/Plan Assessment/Plan Cellulitis of left foot Diabetic ulcer of left foot Consult for glazier metal furniture appreciated, wound cultures growing MSSA and E faecalis, DC vancomycin, start Levaquin 500 mg IV daily for MSSA and Zyvox 600 mg IV q.12h for E faecalis Acute osteomyelitis left 2nd toe, Dr. Bass advised left 2nd toe amputation, patient refused UTI (lower urinary tract infection) urine cultures contaminated, continue Rocephin Uncontrolled diabetes mellitus: insulin sliding scale Diabetic neuropathy Peripheral arterial disease ruled out PICC line in place Dr Ag advised outpatient follow up in one week Social service consult placed for detention facility placement for IV antibiotics as patient lives alone. Plan discussed with: Patient My Orders Orders - LADONNA WAHL MD Procedure Category Date Status Time Consistent DIET 02/20/25 Transmitted Carb(Ccho)Diabetes Breakfast Levofloxacin 500mg PHA 02/21/25 Logged (Levaquin 500mg/ 100m 10:00 Levofloxacin 500mg PHA 02/20/25 Logged (Levaquin 500mg/ 100m 10:45 Linezolid 600mg/300ml PHA 02/20/25 Logged (Zyvox) 11:00 Date of Service: Feb 20, 2025 Billing Provider: LADONNA WAHL MD Common Visit Codes: [id number] INP/OBS CARE(HIGH) LADONNA WAHL MD Feb 20, 2025 10:46
[2025-02-20 10:57] LABS: Basophils # (auto) 0.1 10 ^3/uL (0-0.2); Basophils % (auto) 0.8 % (0.0-2.0); Eosinophils # (auto) 0.1 10 ^3/uL (0-0.8); Hematocrit 41.5 % (36.0-46.0); Hemoglobin 14.2 g/dL (12.2-16.2); Lymphocytes # (auto) 1.8 10 ^3/uL (0.4-5.4); Lymphocytes % (auto) 20.5 % (10.0-50.0); Mean Corpuscular Hemoglobin 31.3 pg (28.0-32.0); Mean Corpuscular Hgb Conc. 34.2 g/dL (32.0-36.0); Mean Corpuscular Volume 91.3 fL (80.0-100.0); Monocytes # (auto) 0.8 10 ^3/uL (0-1.3); Monocytes % (auto) 9.6 % (0.0-12.0); Neutrophils # (auto) 5.8 10 ^3/uL (1.6-8.6); Neutrophils % (auto) 68.1 % (37.0-80.0); Nucleated Red Blood Cells % 0.1 %; Platelet Count (auto) 176 10^3/uL (140-450); Red Blood Cells 4.55 10^6/uL (4.0-5.20); Red Cell Distribution Width 13.1 % (11.8-14.3); White Blood Cell 8.6 10^3/uL (4.4-10.8)
[2025-02-20] MEDS: LINEZOLID 600MG/300ML 300 ML IV SCH (11:00)
[2025-02-21 01:00] VITALS: BP 112/76; PULSE 81; RESP 16; TEMP 98.1; O2SAT 95
[2025-02-21 05:00] VITALS: BP 125/69; PULSE 75; RESP 16; TEMP 98; O2SAT 97
[2025-02-21 08:00] VITALS: PULSE 79; RESP 17; O2SAT 95
[2025-02-21 09:00] VITALS: BP 137/76; PULSE 79; RESP 17; TEMP 97.8; O2SAT 95
[2025-02-21] MEDS: levoFLOXacin 500MG 100 ML IV SCH (10:11)
--- NOTE | 2025-02-21 10:27 | DVHPN2 ---
Reviewed: Care Plan, H&P, Labs, Medications, Previous Orders, Radiology Changes from previous H/P or p: No Changes Eyes: No Pain, No Vision change, No Conjunctivae inflammation, No Eyelid inflammation, No Other, No Redness ENT: No Ear pain, No Ear discharge, No Nose pain, No Nose discharge, No Nose congestion, No Mouth pain, No Mouth swelling, No Throat pain, No Throat swelling, No Other Cardiovascular: No Chest Pain, No Palpitations, No Orthopnea, No Paroxysmal Noc. Dyspnea, No Edema, No Lt Headedness, No Other Respiratory: No Cough, No Dry, No Shortness of breath, No SOB with excertion, No Wheezing, No Hemoptysis, No Pleuritic Pain, No Sputum, No Other Gastrointestinal: No Nausea, No Vomiting, No Abdominal Pain, No Diarrhea, No Constipation, No Melena, No Hematochezia, No Other Genitourinary: No Dysuria, No Frequency, No Incontinence, No Hematuria, No Retention, No Other Musculoskeletal: other (Foot swelling/pain); No neck pain, No shoulder pain, No arm pain, No back pain, No hand pain, No leg pain, No foot pain Skin: No Rash; Lesions (Left 2nd toe); No Jaundice, No Bruising; Other (Left foot redness ) Objective Vitals Vital Signs Date Time Temp Pulse Resp B/P (MAP) Pulse Ox O2 Delivery O2 Flow Rate FiO2 02/21/25 09:00 97.8 79 17 137/76 (96) 95 97.8 02/20/25 20:00 Room Air* 0 21 Intake/Output Intake and Output 02/21/25 07:00 Intake Total 2350 ml Balance 2350 ml Intake Oral 1600 ml IV Total 750 ml # Voids 10 # Bowel Movements 1 Medications Current Medications Medications Dose Ordered Sig/Vini Route Start Time Stop Time Status Last Admin Dose Admin Hydralazine HCl 10 mg Q6HP PRN IV 02/15/25 14:15 Atorvastatin Calcium 20 mg HS PO 02/15/25 22:00 02/20/25 23:13 20 MG Diagnostic Test (Pha) 1 strip ACHS 02/15/25 17:00 02/21/25 06:27 1 STRIP Dextrose 50 ml UD PRN IV 02/15/25 14:15 Sodium Chloride 10 ml Q8HR IV 02/15/25 22:00 02/21/25 05:35 10 ML Acetaminophen/ Hydrocodone Bitart 1 tab Q4HP PRN PO 02/15/25 14:15 Ondansetron HCl 4 mg Q4HP PRN IV 02/15/25 14:15 Docusate Sodium 100 mg BIDPRN PRN PO 02/15/25 14:15 Acetaminophen 650 mg Q6HP PRN PO 02/15/25 14:15 Nitroglycerin 0.4 mg Q5MINP PRN SL 02/15/25 15:45 Morphine Sulfate 2 mg Q30M PRN IV 02/15/25 15:45 Insulin Human Regular AC SC 02/18/25 11:30 02/20/25 17:00 8 UNITS Insulin Human Regular HS SC 02/18/25 22:00 02/20/25 23:27 4 UNITS Sodium Chloride 10 ml QSHIFT@10,22 IV 02/18/25 22:00 02/21/25 10:16 10 ML Levofloxacin/ Dextrose 100 ml @ 100 mls/hr DAILY IV 02/21/25 10:00 02/21/25 10:11 100 MLS/HR Linezolid 300 ml @ 150 mls/hr Q12HR IV 02/20/25 11:00 02/20/25 23:13 150 MLS/HR Laboratory Results Laboratory Tests 02/16/25 05:58 02/20/25 10:40 Urinalysis Test 02/15/25 10:07 Urine Color Light-yellow (Yellow) Urine Clarity Turbid (Clear) H Urine pH 6.0 (5.0-9.0) Urine Specific [place] 1.021 (1.001-1.035) Urine Protein Negative (Negative) Urine Ketones Negative (Negative) Urine Blood Negative /uL (Negative) Urine Nitrite 2+ (Negative) H Urine Bilirubin Negative (Negative) Urine Urobilinogen Normal mg/dL (Negative) Urine Leukocyte Esterase 3+ /uL (Negative) Urine RBC 2 /hpf (0 - 4) Urine Microscopic WBC 64 /HPF (0-5) H Urine Squamous Epithelial Cells Few /hpf (<5) Urine Bacteria Mod /hpf (None Seen) H Urine Mucus Few (None Seen) Urine Glucose 4+ mg/dL (Normal) H Microbiology Microbiology Date/Time Source Procedure Growth Status 02/16/25 15:10 Toe Left (Second) Gram Stain - Final Resulted 02/16/25 15:10 Wound Culture - Preliminary Staphylococcus aureus Enterococcus faecalis Resulted 02/15/25 10:07 Voided Urine Urine Culture - Final Complete Labs and/or images reviewed: Labs reviewed by me, Image(s) reviewed by me Assessment/Plan Assessment/Plan Cellulitis of left foot Diabetic ulcer of left foot Consult for technical account executive appreciated, wound cultures growing MSSA and E faecalis, Levaquin 500 mg IV daily for MSSA and Zyvox 600 mg IV q.12h for E faecalis Acute osteomyelitis left 2nd toe, Dr. Bass advised left 2nd toe amputation, patient refused UTI (lower urinary tract infection) urine cultures contaminated, treated with Rocephin Uncontrolled diabetes mellitus: insulin sliding scale Diabetic neuropathy Peripheral arterial disease ruled out PICC line in place Dr Ag advised outpatient follow up in one week Social service consult placed for senior living facility placement for IV antibiotics as patient lives alone. Plan discussed with: Patient My Orders Orders - LADONNA WAHL MD Procedure Category Date Status Time Levofloxacin 500mg PHA 02/21/25 In Process (Levaquin 500mg/ 100m 10:00 Linezolid 600mg/300ml PHA 02/20/25 In Process (Zyvox) 11:00 * Metal Pattern Maker CONS 02/20/25 Transmitted Consult Date of Service: Feb 21, 2025 Billing Provider: LADONNA WAHL MD Common Visit Codes: [id number] INP/OBS CARE(HIGH) LADONNA WAHL MD Feb 21, 2025 10:27
--- NOTE | 2025-02-21 10:38 | DVHDS2 ---
Discharge Summary Date of Admission February 15, 2025 at 15:37 Date of Discharge: Feb 21, 2025 Admitting Diagnosis Left foot infection Wounds: Left foot osteomyelitis Labs/Diagnostic Data: Laboratory Results Test 02/21/25 06:25 02/20/25 10:40 02/18/25 16:13 02/18/25 05:50 POC Glucose 113 mg/dl (70-106) White Blood Count 8.6 10^3/uL (4.4-10.8) Red Blood Count 4.55 10^6/uL (4.0-5.20) Hemoglobin 14.2 g/dL (12.2-16.2) Hematocrit 41.5 % (36.0-46.0) Mean Corpuscular Volume 91.3 fL (80.0-100.0) Mean Corpuscular Hemoglobin 31.3 pg (28.0-32.0) Mean Corpuscular Hemoglobin Concent 34.2 g/dL (32.0-36.0) Red Cell Distribution Width 13.1 % (11.8-14.3) Platelet Count 176 10^3/uL (140-450) Mean Platelet Volume 8.7 fL (6.9-10.8) Neutrophils (%) (Auto) 68.1 % (37.0-80.0) Lymphocytes (%) (Auto) 20.5 % (10.0-50.0) Monocytes (%) (Auto) 9.6 % (0.0-12.0) Eosinophils (%) (Auto) 1.0 % (0.0-7.0) Basophils (%) (Auto) 0.8 % (0.0-2.0) Neutrophils # (Auto) 5.8 10 ^3/uL (1.6-8.6) Lymphocytes # (Auto) 1.8 10 ^3/uL (0.4-5.4) Monocytes # (Auto) 0.8 10 ^3/uL (0-1.3) Eosinophils # (Auto) 0.1 10 ^3/uL (0-0.8) Basophils # (Auto) 0.1 10 ^3/uL (0-0.2) Nucleated Red Blood Cells 0.1 % Creatinine 0.94 mg/dL (0.550-1.02) Glomerular Filtration Rate Calc 70 mL/min (>90) Vancomycin Level Trough 19.2 ug/mL (5-10) Prothrombin Time 10.3 sec (9.3-11.8) Prothrombin Time INR 0.97 (0.9-1.15) Activated Partial Thromboplast Time 26.7 SEC (24.5-34.5) Test 02/16/25 05:58 02/15/25 10:19 02/15/25 10:07 Sodium Level 140 mmol/L (136-145) Potassium Level 4.1 mmol/L (3.5-5.1) Chloride Level 104 mmol/L (98-107) Carbon Dioxide Level 28 mmol/L (20-31) Anion Gap 8 (5-15) Blood Urea Nitrogen 11 mg/dL (9-23) BUN/Creatinine Ratio 13.6 (10.0-20.0) Serum Glucose 184 mg/dL (74-106) Calcium Level 9.4 mg/dL (8.7-10.4) Total Bilirubin 0.8 mg/dL (0.2-1.0) Aspartate Amino Transferase (AST) 38 U/L (13-40) Alanine Aminotransferase (ALT) 43 U/L (7-40) Alkaline Phosphatase 112 U/L (46-116) Total Protein 6.8 g/dL (5.7-8.2) Albumin 4.2 g/dL (3.2-4.8) Erythrocyte Sedimentation Rate 23 mm/hr (0-20) Lactic Acid Level 1.0 mmol/L (0.4-2.0) C-Reactive Protein High Sensitivity 1.88 mg/dL (<1.0) Urine Color Light-yellow (Yellow) Urine Clarity Turbid (Clear) Urine pH 6.0 (5.0-9.0) Urine Specific [place] 1.021 (1.001-1.035) Urine Protein Negative (Negative) Urine Ketones Negative (Negative) Urine Blood Negative /uL (Negative) Urine Nitrite 2+ (Negative) Urine Bilirubin Negative (Negative) Urine Urobilinogen Normal mg/dL (Negative) Urine Leukocyte Esterase 3+ /uL (Negative) Urine RBC 2 /hpf (0 - 4) Urine Microscopic WBC 64 /HPF (0-5) Urine Squamous Epithelial Cells Few /hpf (<5) Urine Bacteria Mod /hpf (None Seen) Urine Mucus Few (None Seen) Urine Glucose 4+ mg/dL (Normal) Other Laboratory Tests 02/20/25 10:40 02/16/25 05:58 Brief Hx & Hospital Course: 60 year-old female with a history of uncontrolled diabetes noncompliance came in for nonhealing diabetic left foot ulcer seen by podiatric Dr. Bass and her podiatric Dr. Ag advised outpatient follow up in one week. MRI left foot showed osteomyelitis of the left secondary to she was advised by the sack filler for secondary toe amputation but she refused. Wound cultures came positive for MSSA placed on Levaquin 500 mg IV daily and E faecalis for which she was placed on Zyvox 600 mg IV q.12h both of which she will receive for six weeks by home health. Peripheral arterial disease ruled out patient has a PICC line she does not want to go to half-way facility .being discharged home on on home health for IV antibiotics. she will follow up with Dr. 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 Bass advised left 2nd toe amputation, patient refused UTI (lower urinary tract infection) urine cultures contaminated, treated with Rocephin Uncontrolled diabetes mellitus: insulin sliding scale Diabetic neuropathy Peripheral arterial disease ruled out PICC line in place Dr Ag advised outpatient follow up in one week Discharge Disposition: Home with Health Services Discharge Instruct/Medications Diet: Consistent carbohydrate, Cardiac 2g Na,low cholest Activity: Light activity Follow Up/Referral: Follow up with the primary Dr in one week Follow up with home health Dr Follow up with sack filler Dr Ag in one week Medications: Levaquin 500 mg IV daily for six weeks Zyvox 600 mg IV q.12h for six weeks To be administered by home health 36 (Time taken for discharge summary 36 minutes) Discharge Statement: "Patient was advised to return to the ER or call 911 if any headaches, dizziness, shortness of breath, chest pain, abdominal pain, bleeding, fevers, or worsening of medical condition. Patient was counseled about treatment plan, medications, possible side effects, patientverbalized understanding. All questions were answered to the best of my ability. This discharge took greater then 30 minutes in planning, reviewing documentation, counseling the patient, and discussing with other team members." ASSESSMENT ASSESSMENT Hospital Course Uneventful Assessment Cellulitis of left foot Diabetic ulcer of left foot Consult for sack filler appreciated, wound cultures growing MSSA and E faecalis, Levaquin 500 mg IV daily for MSSA and Zyvox 600 mg IV q.12h for E faecalis Acute osteomyelitis left 2nd toe, Dr. Bass advised left 2nd toe amputation, patient refused UTI (lower urinary tract infection) urine cultures contaminated, treated with Rocephin Uncontrolled diabetes mellitus: insulin sliding scale Diabetic neuropathy Peripheral arterial disease ruled out PICC line in place Dr Ag advised outpatient follow up in one week Date of Service: Feb 21, 2025 Billing Provider: LADONNA WAHL MD Common Visit Codes: 35992-FOL/OBS DISCH DAY >30min LADONNA WAHL MD Feb 21, 2025 10:38
[2025-02-21 13:00] VITALS: BP 130/77; PULSE 85; RESP 17; TEMP 97.8; O2SAT 97
[2025-02-21 17:00] VITALS: BP 123/70; PULSE 84; RESP 17; TEMP 98.2; O2SAT 96
== END 2025-02-21 18:53 | disposition home health service (06) | DRG 344 ==
LOC: ER 08:21 → OVERFLOW 15:37 → EAST 02-16 13:51
PROVIDERS: ADMIT Family Medicine; ATTEND Family Medicine
PROC: 02HV33Z Insertion of Infusion Device into Superior Vena Cava, Percutaneous Approach (ICD-10-PCS; principal; 2025-02-18)
PROC: B548ZZA Ultrasonography of Superior Vena Cava, Guidance (ICD-10-PCS; 2025-02-18)
DX: E11.69 Type 2 diabetes mellitus with other specified complication (principal); M86.172 Other acute osteomyelitis, left ankle and foot; E11.621 Type 2 diabetes mellitus with foot ulcer; L03.116 Cellulitis of left lower limb; E11.40 Type 2 diabetes mellitus with diabetic neuropathy, unspecified; L97.529 Non-pressure chronic ulcer of other part of left foot with unspecified severity; N39.0 Urinary tract infection, site not specified; Z60.2 Problems related to living alone; E78.5 Hyperlipidemia, unspecified; Z90.49 Acquired absence of other specified parts of digestive tract; Z90.710 Acquired absence of both cervix and uterus; Z83.3 Family history of diabetes mellitus; Z82.49 Family history of ischemic heart disease and other diseases of the circulatory system; Z91.199 Patient's noncompliance with other medical treatment and regimen due to unspecified reason; Z79.4 Long term (current) use of insulin; Z79.899 Other long term (current) drug therapy
CPT/HCPCS: 36415; 36569; 73701; 73718; 76937; 80048; 80053; 80202; 81001; 82565; 82962; 83605; 85025; 85610; 85652; 85730; 86141; 87077; 87086; 87186; 87205; 93926; 96365; 96372; G0378; J1815; J1956